=== PATIENT | female | born 2000 | race Caucasian/White ===

== ENCOUNTER 2023-10-20 10:56 | Outpatient (REF) | payer MEDICAID, SELFPAY ==
[2023-10-20 14:33] LABS: MANUAL DIFF FLAG NO
[2023-10-20 14:36] LABS: Basophils Percent Auto 0.5 % (0-2); Eosinophils Percent Auto 0.5 % (0-4); Hematocrit 38.6 % (37.0-47.0); Hemoglobin 12.1 g/dl (12.0-16.0); Imm Gran Abs Auto 0.03 X10*3/uL (0.00-0.03); Imm Gran Pct Auto 0.3 % (0.0-0.4); Lymphocytes Absolute Auto 2.2 X10*3/uL (1.2-4.9); Lymphocytes Percent Auto 25.6 % (20-40); Mean Corpuscular HGB Conc 31.3 g/dl (31.0-35.0); Mean Corpuscular Hemoglobin 28.2 pg (27.0-33.0); Mean Platelet Volume 9.7 fL (9.4-12.3); Monocytes Absolute Auto 0.5 X10*3/uL (0.1-1.2); Monocytes Percent Auto 6.3 % (2-11); Neutrophils Absolute Auto 5.8 x10*3/uL (2.0-8.3); Neutrophils Percent Auto 66.8 % (45-73); Platelet Count 330 X10*3/uL (160-400); Red Blood Count 4.29 X10*6/uL (4.20-5.50); Red Cell Distribution Width 14.4 % (11.0-16.0); White Blood Count 8.6 X10*3/uL (4.8-10.8)
[2023-10-20 14:47] LABS: Estimated Average Glucose 105 mg/dL; Hemoglobin A1c % 5.3 % (<6.0)
[2023-10-20 15:05] LABS: Alanine Aminotransferase 18 U/L (0-31); Albumin Level 4.2 g/dL (3.5-5.0); Alkaline Phosphatase 87 U/L (39-117); Anion Gap 9 (12-20); Aspartate Amino Transferase 18 U/L (5-31); Bilirubin Total 0.5 mg/dL (0.0-1.0); Blood Urea Nitrogen 8 mg/dL (9-16); Carbon Dioxide 29 mmol/L (22-29); Chloride 104 mmol/L (96-108); Cholesterol 156 mg/dL (<200); Estimated Glomerular Filt Rate > 60; Glucose Random 78 mg/dL (60-115); HDL Cholesterol 49 mg/dL (>40); LDL Cholesterol Calculated 91 mg/dL (<100); Potassium 4.1 mmol/L (3.3-5.1); Sodium 138 mmol/L (135-145); Total Protein 8.2 g/dL (6.5-8.0); Triglycerides 80 mg/dL (<150)
[2023-10-21 03:39] LABS: HIV AB/AG Nonreactive (Nonreactive); HIV Num 1 0.05 S/CO (0.00-0.99)
[2023-10-23 00:43] LABS: TS Negative Control Passed; TS Panel A 0; TS Panel B 0; TS Positive Control Passed; TSpotTB Negative (Negative)
[2023-10-23 12:48] LABS: HCV Log PCR <1.18 NOT DETECTED Log IU/mL (NOT DETECTED); HepC Viral Load <15 NOT DETECTED IU/mL (NOT DETECTED)
== END 2023-10-20 10:57 | disposition home or self-care (01) ==
LOC: HO.CHCLDS 10:56
PROVIDERS: Visit Provider Registered Nurse
DX: Z00.00 Encounter for general adult medical examination without abnormal findings (principal)
CPT/HCPCS: 36415; 80053; 80061; 83036; 84443; 85025; 86481; 86592; 87389; 87522

== ENCOUNTER 2024-11-21 13:09 | Outpatient (REF) | payer OTHER, SELFPAY ==
--- NOTE | ~2024-11-21 | XR_ITS ---
EXAMINATION: XR RIBS, LEFT CLINICAL INFORMATION: pain COMPARISON: May 05, 2016. TECHNIQUE: AP chest. Oblique views left hemithorax. FINDINGS: No consolidation pleural effusion or pneumothorax. Cardiomediastinal silhouette size is normal. No acute cortical disruption or irregularity in the ribs, left hemithorax. XR/XR ribs LT min 3V w CXR1V IMPRESSION: No acute airspace disease. No acute rib fracture, left hemithorax. Negative exam. Electronically signed by: Reinaldo Bahena MD 11/21/2024 01:42 PM EDT
--- OUTSIDE RECORDS SUMMARY | 2024-11-21 13:13 | XMS_ITS | Clinical Summary ---
Author Organization [facility] ity Address [address] [place] [address] Care Team Providers Care Chief Nurse Executive Name Role Phone Unavailable Primary Care Provider Unavailabl e Social History Tobacco Use Types Packs/Day Years Used Date Smoking Tobacco: Never Assessed Comments Unknown Sex and Gender Information Value Date Recorded Sex Assigned at Not on file Legal Sex Female 8:34 PM EST Gender Identity Not on file Sexual Orientation Not on file Plan of Treatment Health Maintenance Due Date Last Done Comments Gonorrhea/Chlamydia Screening 2001 HPV Vaccines (1 - 3-dose series) 2016 Meningococcal B Vaccine (1 o f 2 - Standard) 2017 DTaP,Tdap,and Td Vaccines (1 - Tdap) 2020 Hepatitis B Vaccines (1 of 3 - 19+ 3-dose series) 2020 Cervical Cancer Screening: P ap Smear 2022 COVID-19 Vaccine (1 - 2023-2 5 season) 2024 Influenza Vaccine (#1) 2025 HIB Vaccines Aged Out No longer eligi ble based on patient's age to complete this topic Hepatitis A Vaccines Aged Out No long er eligible based on patient's age to complete this topic IPV Vaccines Aged Out No longer eligi ble based on patient's age to complete this topic MMR Vaccines Aged Out No longer eligi ble based on patient's age to complete this topic Meningococcal ACWY Vaccine Aged Out N o longer eligible based on patient's age to complete this topic Pneumococcal Vaccine: Pediat rics (0 to 5 Years) and At-Risk Patients (6 to 49 Years) Aged Out No longer eligible b ased on patient's age to complete this topic RSV Immunization Patients Un dot 20 months Aged Out No longer eligible b ased on patient's age to complete this topic Varicella Vaccines Aged Out No longer eligible based on patient's age to complete this topic
--- OUTSIDE RECORDS SUMMARY | 2024-11-21 13:13 | XMS_ITS | Encounter Summary ---
Author Organization [employer] Address [address] [place] [address] Care Team Providers Care Layer Out Plate Glass Name Role Phone AndersonGenny pizarro LORA Primary Care Provider [phone] Encounter Details Date Type Department Care Team (Latest Contact Info) Description 11/20/2024 Travel Social History Tobacco Use Types Packs/Day Years Used Date Smoking Tobacco: Never Passive Smoke Exposure: Never Smokeless Tobacco: Never Alcohol Use Standard Drinks/Week Comments Never 0 (1 standard drink = 0.6 oz pur e alcohol) Depression Answer Date Recorded Patient Health Questionnaire-9 Score 15 10/20/2023 Patient Health Questionnaire-9 Score 15 10/20/2023 Last PHQ-9: Questionnaire Data Not on file 0 10/20/2023 Housing Stability Answer Date Recorded What is your housing situation today? I have ayad soares 10/20/[address] you li ve. Do you have problems with any of the following? None of the above 10/20/2023 Food Insecurity Answer Date Recorded Within the past 12 months, y ou worried that your food would run out before you got money to buy more: Never True 10/20/2023 Within the past 12 months,th e food you bought just didn't last and you didn't have enough money to get more: Never True 11/2023 Transportation Answer Date Recorded In the past 12 months, has l ack of transportation kept you from medical appts, meetings, work or from getting things needed for daily living? No 10/20/2023 Utilities Answer Date Recorded In the past 12 months, has t he electric, gas, oil or water company threatened to shut off services in your home? No 10/20/2023 Depression Answer Date Recorded Patient Health Questionnaire-2 Score 4 10/20/2023 Comments Unknown Sex and Gender Information Value Date Recorded Sex Assigned at Female 03/14/2022 10:22 AM EDT Legal Sex Female 10:22 AM EDT Gender Identity Female 03/14/2022 10:22 AM EDT Sexual Orientation Straight 03/14/2022 10 :22 AM EDT documented as of this encounter Plan of Treatment Upcoming Encounters Date Type Department Care Team (Late st Contact Info) Description 01/03/2025 9:30 AM EDT Office Visit [facility] [address] [place] [address] Genny Santiago FNP [address] [place] [address] documented as of this encounter Visit Diagnoses Not on filedocumented in this encounter Additional Health Concerns Assessment Noted Time PHQ-9 Depression Total Score: 15 024 9:46 AM EDT documented as of this encounter Care Teams Layer Out Plate Glass Relationship Specialty Start Date End Date Genny Santiago FNP [address] [place] [address] PCP - General Family Medicine 04/04/22 documented as of this encounter
== END 2024-11-21 13:10 | disposition home or self-care (01) ==
LOC: HO.HHCX 13:09
PROVIDERS: PCP Registered Nurse; Visit Provider Family Medicine
DX: R07.89 Other chest pain (principal)
CPT/HCPCS: 71101

== ENCOUNTER → 2024-11-21 13:18 | Outpatient (BNV) | payer OTHER, SELFPAY | PROVIDERS: PCP Registered Nurse; Visit Provider Radiology Diagnostic Radiology | DX: R07.89 Other chest pain (principal) | CPT/HCPCS: 71101 ==

== ENCOUNTER 2025-01-08 09:27 | Outpatient (REF) | payer OTHER, SELFPAY ==
--- OUTSIDE RECORDS SUMMARY | 2025-01-03 09:30 | XMS_ITS | Encounter Summary ---
Author Organization [email or web address] Address [address] [facility] 7 [place] [address] Care Team Providers Care Rice Cleaning Machine Tender Name Role Phone Genny Santiago Primary Care Provider [phone] Reason for Referral * Consultation (Routine) - Authorized Specialty Diagnoses / Procedures Referred By Greg rossi Referred To Contact Allergy Diagnoses Allergy, subsequent encounter Genny Santiago FNP [address] [place] [address] Phone: tel: fax: Elan Adams MD [address] [place] [address] [address] [place] [id number] Phone: tel: fax: Referral ID Status Reason Start Date Expiration Date Visits Requested Visits Authorized [id number] Authorized Specialty Services Required 01/05/2025 01/05/2026 1 1 * Consultation (Urgent) - Authorized Specialty Diagnoses / Procedures Referred By Greg rossi Referred To Contact Rheumatology Diagnoses Juvenile idiopathic arthritis (CMS/HCC) Genny Santiago FNP [address] [place] [address] Phone: tel: fax: [facility] Referral ID Status Reason Start Date Expiration Date Visits Requested Visits Authorized [id number] Authorized Specialty Services Required 01/05/2025 01/05/2026 1 1 Reason for Visit * Reason Comments Annual Exam Encounter Details Date Type Department Care Team (Late st Contact Info) Description 01/03/2025 9:30 AM EDT Office Visit [facility] [address] [place] [address] Genny Santiago FNP [address] [place] [address] Encounter for routine history and physical examination of adult (Primary Dx); Dietary counseling; Exercise counseling; Allergy, subsequent encounter; Routine health maintenance; Anxiety with depression; Juvenile idiopathic arthritis (CMS/HCC); Recurrent sinusitis; Mild acid reflux Social History Tobacco Use Types Packs/Day Years Used Date Smoking Tobacco: Never Passive Smoke Exposure: Never Smokeless Tobacco: Never Alcohol Use Standard Drinks/Week Comments Never 0 (1 standard drink = 0.6 oz pur e alcohol) Depression Answer Date Recorded Patient Health Questionnaire-9 Score 16 01/03/2025 Patient Health Questionnaire-9 Score 16 01/03/2025 Last PHQ-9: Questionnaire Data Not on file 0 01/03/2025 Housing Stability Answer Date Recorded What is your housing situation today? I have ayad soares 12/26/[address] you li ve. Do you have problems with any of the following? None of the above 12/26/2024 Food Insecurity Answer Date Recorded Within the past 12 months, y ou worried that your food would run out before you got money to buy more: Never True 12/26/2024 Within the past 12 months,th e food you bought just didn't last and you didn't have enough money to get more: Never True Transportation Answer Date Recorded In the past 12 months, has l ack of transportation kept you from medical appts, meetings, work or from getting things needed for daily living? No 12/26/2024 Utilities Answer Date Recorded In the past 12 months, has t he electric, gas, oil or water company threatened to shut off services in your home? No 12/26/2024 Depression Answer Date Recorded Patient Health Questionnaire-2 Score 4 01/03/2025 Internet Access Answer Date Recorded Internet Access Q1 Yes 12/26/2024 Internet Access Q2 Not on file 12/26/2024 Comments Unknown Sex and Gender Information Value Date Recorded Sex Assigned at Female 03/14/2022 10:22 AM EDT Legal Sex Female 10:22 AM EDT Gender Identity Female 03/14/2022 10:22 AM EDT Sexual Orientation Straight 03/14/2022 10 :22 AM EDT documented as of this encounter Last Filed Vital Signs Vital Sign Reading Time Taken Comments Blood Pressure 116/74 01/03/2025 9:47 AM EDT Pulse 80 01/03/2025 9:47 AM EDT Temperature 36.3 C (97.4 F) 01/03/2025 9:47 AM EDT Respiratory Rate 20 01/03/2025 9:47 AM EDT Oxygen Saturation 98% 01/03/2025 9:47 AM EDT Inhaled Oxygen Concentration - - Weight 103 kg (228 lb) 01/03/2025 9:47 AM EDT Height 163.2 cm (5' 4.25 ) 01/03/2025 9:47 AM ED T Body Mass Index 38.83 01/03/2025 9:47 AM EDT documented in this encounter Functional Status * Over the past 2 weeks, how often have you been bothered by any of the following problems? Question Answer Date of Assessment Author Patient Health Questionnaire -2 Score 4 01/03/2025 10:43 AM EDT Sa izabela De Paz [place] * Little interest or pleasure in doing things Answer Date of Assessment Author More than half the days 01/03/2025 10:43 AM EDT Roma De Paz MA * Feeling down, depressed, or hopeless Answer Date of Assessment Author More than half the days 01/03/2025 10:43 AM EDT Roma De aPz [place] * Trouble falling or staying asleep, or sleeping too much Answer Date of Assessment Author More than half the days 01/03/2025 10:43 AM EDT Roma De Paz [place] * Feeling tired or having little energy Answer Date of Assessment Author Nearly every day 01/03/2025 10:43 AM EDT Roma Donato [place] * Poor appetite or overeating Answer Date of Assessment Author More than half the days 01/03/2025 10:43 AM Roma Stewart [place] * Feeling bad about yourself - or that you are a failure or have let yourself or your family down Answer Date of Assessment Author More than half the days 01/03/2025 10:43 AM Roma Stewart [place] * Trouble concentrating on things, such as reading the newspaper or watching television Answer Date of Assessment Author Several days 01/03/2025 10:43 AM EDT Roma Rios [place] * Moving or speaking so slowly that other people could have noticed? Or the opposite - being so fidgety or restless that you have been moving around a lot more than usual. Answer Date of Assessment Author More than half the days 01/03/2025 10:43 AM Roma Stewart MA * Thoughts that you would be better off or hurting yourself in some way Answer Date of Assessment Author Not at all 01/03/2025 10:43 AM Roma Flores MA * Patient Health Questionnaire-9 Score Answer Date of Assessment Author 16 01/03/2025 10:43 AM Roma Flores MA * How difficult have these problems made it for you to do your work, take care of things at home, or get along with other people? Answer Date of Assessment Author Very difficult 01/03/2025 10:43 AM Roma Flores MA * Over the last 2 weeks, how often have you been bothered by any of the following problems? Question Answer Date of Assessment Author Feeling nervous, anxious, or on edge 2 01/03/2025 10:43 AM Sa izabela Stewart MA Not being able to stop or control worrying 2 01/03/2025 10:43 AM Sa izabela Stewart MA Worrying too much about different things 2 01/03/2025 10:43 AM Sa izabela Stewart MA Trouble relaxing 2 01/03/2025 10:43 AM Roma Stewart MA Being so restless that it is hard to sit still 1 01/03/2025 10:43 AM EDT Sa izabela De Paz MA Becoming easily annoyed or irritable 3 01/03/2025 10:43 AM EDT Sa izabela De Paz MA Feeling afraid as if somethi ng awful might happen 2 01/03/2025 10:43 AM EDT Sa izabela De Paz MA BREEZY-7 Total Score 14 01/03/2025 10:43 AM EDT Roma De Paz MA documented as of this encounter Patient Instructions * Patient Instructions* LORA Echevarria - 01/03/2025 9:30 AM EDT Please schedule an appointment for a pap smear Referrals to Rheumatology and Allergy will be sent documented in this encounter Progress Notes * LORA Echevarria - 01/03/2025 9:30 AM EDT Subjective: Mami Fortune is a 24 y.o. female who presents to the office with her mother for a physical exam. Interim history: Last PCP appt: 11/17/23 HPI: Juvenile idiopathic arthritis: Has been w/o Case Checker d/t insurance issues, leading to discontinuation of Humira over the past few months. Experiencing severe joint pain and mobility issues without Humira, affecting wrists, knees, ankles, hips, and finger joints. Difficulty with daily activities and work due to pain. Sinus congestion: Onset: > 2 weeks. Sinus congestion persists despite using Zyrtec and Benadryl.Stopped allergy shots due to insurance not covering them, leading to increased sinus issues. History of a sinus infection last year that required two rounds of antibiotics to resolve. Depression & Anxiety: Discontinued Prozac, currently taking Wellbutrin but experiencing increased anxiety, possibly due to stress from work, engagement, and family moving in. Anxiety had been better controlled when taking Prozac, in agreement to restart on low dose. Continues following with therapist. Acid reflux: Experiencing frequent acid reflux for a few weeks, not triggered by specific foods. Has been using TUMs OTC. In agreement to trial famotidine PRN. Problem List[1] Specialists: ENT - previously following for enlarged tonsils Route Driver - previously following and receiving allergy shots. In need of updated referral d/t new insurance. Rheum - following for hx of Juvenile idiopathic arthritis. In need of updated referral. Surgical History[2] Family History[3] Social History Social History Narrative Living situation: lives with family members Employment/Education: 8am-5pm at [employer], college graduate Substance use: denies use of alcohol, tobacco, opioids, or other substances Sexual activity: denies hx of sexual activity. Baseline STI screening 10/2023 neg Mental health: denies SI/HI/thoughts of self harm Menses: Menstrual cycles occur approx every 21 days. (+) intermittent dysmenorrhea. Allergies[4] Review of Systems Constitutional: Negative for chills, fatigue and fever. HENT: Positive for congestion, sinus pressure and sinus pain. Negative for sore throat. Eyes: Negative for visual disturbance. Respiratory: Negative for cough, shortness of breath and wheezing. Cardiovascular: Negative for chest pain and palpitations. Gastrointestinal: Negative for constipation, diarrhea, nausea and vomiting. Musculoskeletal: Positive for arthralgias. Skin: Negative for rash. Psychiatric/Behavioral: Positive for dysphoric mood. Negative for suicidal ideas. The patient is nervous/anxious. Visit Vitals BP 116/74 (BP Location: Left arm, Patient Position: Sitting, BP Cuff Size: Adult) Pulse 80 Temp 97.4 ??F (36.3 ??C) (Oral) Resp 20 Ht 5' 4.25 (1.632 m) Wt 228 lb (103 kg) SpO2 98% BMI 38.83 kg/m?? Smoking Status Never BSA 2.16 m?? Physical Exam Vitals reviewed. Constitutional: Appearance: Normal appearance. HENT: Head: Normocephalic and atraumatic. Right Ear: Tympanic membrane, ear canal and external ear normal. Left Ear: Tympanic membrane, ear canal and external ear normal. Nose: Congestion present. Right Turbinates: Enlarged. Left Turbinates: Enlarged. Right Sinus: Maxillary sinus tenderness and frontal sinus tenderness present. Left Sinus: Maxillary sinus tenderness and frontal sinus tenderness present. Mouth/Throat: Mouth: Mucous membranes are moist. Pharynx: No oropharyngeal exudate or posterior oropharyngeal erythema. Eyes: General: Right eye: No discharge. Left eye: No discharge. Extraocular Movements: Extraocular movements intact. Pupils: Pupils are equal, round, and reactive to light. Cardiovascular: Rate and Rhythm: Normal rate and regular rhythm. Heart sounds: Normal heart sounds. Pulmonary: Effort: Pulmonary effort is normal. Breath sounds: Normal breath sounds. Abdominal: General: There is no distension. Palpations: Abdomen is soft. Musculoskeletal: General: Normal range of motion. Cervical back: Normal range of motion. No tenderness. Skin: General: Skin is warm. Neurological: Mental Status: She is alert and oriented to person, place, and time. Psychiatric: Mood and Affect: Mood normal. Behavior: Behavior normal. Problem List Items Addressed This Visit Allergies and Adverse Reactions Allergies Current Assessment & Plan -Allergy testing through ENT and reports tested positive to the following allergens: Grass, trees, cat and dog dander, cockroaches, dust, mold -Referred to gaming cage worker in August 2022 for testing of food allergies, reports initial consult scheduled for Feb 2023 -Epi pen PRN -Referred to re-establish with allergies: 01/05/25 Relevant Orders Referral to Allergy Gastrointestinal and Abdominal Mild acid reflux Current Assessment & Plan - Increased frequency of acid reflux symptoms. - Start famotidine up to twice daily before meals. Avoid dietary triggers. Follow-up in 2-3 months to assess response. Relevant Medications famotidine (Pepcid) 20 MG tablet Health Encounters Routine health maintenance Overview Last PE: 01/03/25 Dental: referral to [facility] dental 06/19/23 Pap: due for annual pap while taking Humira. Current Assessment & Plan Encouraged to schedule pap. Routine lab work ordered. Mental Health Anxiety with depression Current Assessment & Plan - Anxiety has increased, likely exacerbated by environmental stressors. Depression managed with Wellbutrin, but anxiety persists. No current fluoxetine use. - Restart fluoxetine at 10 mg daily. Continue Wellbutrin. Continue therapy. Advised to hold ashwagandha due to potential interaction with fluoxetine. -BH: OP therapy: [facility] ([facility]) Therapist: Harman Relevant Medications FLUoxetine (PROzac) 10 MG capsule Multi-system (Lupus, Sarcoid...) Juvenile idiopathic arthritis (CMS/HCC) Current Assessment & Plan - Juvenile arthritis symptoms have worsened due to discontinuation of Humira. No current wood setter. - Placed urgent referral to rheumatology for evaluation and management. Will check tuberculosis with blood work prior to restarting Humira. Relevant Orders Referral to Rheumatology Other Visit Diagnoses Encounter for routine history and physical examination of adult - Primary -Cardiopulmonary exam WNL -Encouraged healthy lifestyle habits including routine physical exercise and diet rich in fruits and vegetables Relevant Medications Multiple Vitamins-Minerals (WOMENS MULTI GUMMIES PO) Other Relevant Orders T-SPOT??.TB Comprehensive Metabolic Panel TSH W/Reflex to FT4 Lipid Panel, Standard Hemoglobin A1c Vitamin D, 25-Hydroxy, Total, Immunoassay Dietary counseling Exercise counseling Recurrent sinusitis - Chronic sinus congestion with recurrent sinusitis, currently with increased congestion and sinus tenderness. Previous sinus infections required two rounds of antibiotics, with better response to levofloxacin. - Prescribed levofloxacin once daily for 7 days[address] Placed referral to allergy for evaluation and possible resumption of allergy injections. Will confirm Flonase prescription. Relevant Medications levoFLOXacin (Levaquin) 500 MG tablet Follow up: 2-3 months for pap, acid reflux, and mental health. Sooner as needed. Current Medications[5] Immunization History Administered Date(s) Administered DTaP 2001, 01/11/2002, 06/24/2002, 12/06/2004, 09/19/2007 HPV 9-Valent 02/09/2015, 06/18/2015 HPV, Quadrivalent 03/14/2013 Hep A, ped/adol, 2 dose 02/09/2015, 08/13/2015 Hep B, Adolescent or Pediatric 2001, 2001, 01/11/2002 Hib (HbOC) 2001, 01/11/2002, 08/23/2002 IPV 2001, 2001, 01/11/2002, 05/27/2005 Influenza injectable quadrivalent IIV4 with preservative 02/09/2015, 02/08/2018 Influenza injectable quadrivalent preservative free 06/02/2020, 03/09/2021, 01/27/2022, 02/03/2023 Influenza, live, intranasal 01/23/2012, 03/14/2013 MMR 06/24/2002, 05/27/2005 Meningococcal B, Recombinant 09/21/2017, 10/23/2018 Meningococcal MCV4O 10/23/2018 Meningococcal MCV4P ACYW-135 03/14/2013, 12/31/2019 Pfizer Covid-19 Vaccine 12+ 02/08/2018, 06/26/2020, 07/17/2020, 06/04/2021, 10/20/2023, 03/05/2024 Pfizer Covid-19 Vaccine 12+ Bivalent 09/06/2022 Pneumococcal Conjugate PCV 7 2001, 2001, 06/24/2002 Tdap 03/14/2013, 07/10/2016, 10/23/2018 Varicella 06/24/2002, 10/18/2006, 06/24/2012 [1] Patient Active Problem List Diagnosis Juvenile idiopathic arthritis (CMS/HCC) Anxiety with depression Routine health maintenance Allergies Mild acid reflux [2] Past Surgical History: Procedure Laterality Date DENTAL SURGERY [3] Family History Problem Relation Name Age of Onset Depression Mother Rosi Asthma Father Frederic Heart disease Father Frederic Hypertension Father Frederic Mental illness Father Frederic Heart attack Father Frederic Osteoarthritis Father Frederic Osteoporosis Father Frederic Asthma Sister Rosie Depression Sister Rosie Learning disabilities Sister Sussarwat Intellectual Disability Sister Sussarwat Asthma Mother's Sister Magdalenoi Diabetes Father's Sister Tracy Arthritis Maternal Grandmother Judy Diabetes Maternal Grandmother Judy Asthma Maternal Grandfather Quan Lung cancer Maternal Grandfather Quan Arthritis Paternal Grandmother Rhona Asthma Paternal Grandmother Rhona Skin cancer Paternal Grandmother Rhona [4] Allergies Allergen Reactions Cat Dander Dog Dander [Dog Epithelium] Dust Mite Extract Molds & Smuts Hives [5] Current Outpatient Medications Medication Sig Dispense Refill Multiple Vitamins-Minerals (WOMENS MULTI GUMMIES PO) Take 1 tablet by mouth Once per day. buPROPion XL (Wellbutrin XL) 300 MG 24 hr tablet TAKE 1 TABLET BY MOUTH EVERY MORNING. DO NOT CRUSH, CHEW OR SPLIT. 90 tablet 0 Cetirizine HCl 10 MG capsule one pill daily EPINEPHrine (Epipen) 0.3 MG/0.3ML injection syringe USE DIRECTED FOR ANAPHYLAXIS AND CALL 911 famotidine (Pepcid) 20 MG tablet Take 1 tablet (20 mg) by mouth before breakfast and before eveningmeal. 60 tablet 1 FLUoxetine (PROzac) 10 MG capsule Take 1 capsule (10 mg) by mouth Once per day. 90 capsule 1 fluticasone (Flonase) 50 MCG/ACT nasal spray Administer 1-2 sprays into each nostril Once per day. Shake gently. Before first use, prime pump. After use, clean tip and replace cap. Treatment for sinusitis for 14 days no need refills 16 g 0 Humira Pen 40 MG/0.4ML Pen-injector Kit pen-injector levoFLOXacin (Levaquin) 500 MG tablet Take 1 tablet (500 mg) by mouth Once per day for 7 days. 7 tablet 0 meloxicam (Mobic) 15 MG tablet TAKE 1 TABLET BY MOUTH EVERY DAY WITH FOOD NEEDED FOR PAIN No current facility-administered medications for this visit. documented in this encounter Miscellaneous Notes * Assessment & Plan Note - LORA Echevarria - 01/05/2025 2:22 PM EDTAssociated Problem(s): Routine health maintenance Encouraged to schedule pap. Routine lab work ordered. * Assessment & Plan Note - LORA Echevarria - 01/05/2025 2:21 PM EDTAssociated Problem(s): Mild acid reflux - Increased frequency of acid reflux symptoms. - Start famotidine up to twice daily before meals. Avoid dietary triggers. Follow-up in 2-3 months to assess response. * Assessment & Plan Note - LORA Echevarria - 01/03/2025 9:49 AM EDTAssociated Problem(s): Juvenile idiopathic arthritis (CMS/HCC) - Juvenile arthritis symptoms have worsened due to discontinuation of Humira. No current wood setter. - Placed urgent referral to rheumatology for evaluation and management. Will check tuberculosis with blood work prior to restarting Humira. * Assessment & Plan Note - LORA Echevarria - 01/03/2025 9:49 AM EDTAssociated Problem(s): Anxiety with depression - Anxiety has increased, likely exacerbated by environmental stressors. Depression managed with Wellbutrin, but anxiety persists. No current fluoxetine use. - Restart fluoxetine at 10 mg daily. Continue Wellbutrin. Continue therapy. Advised to hold emelydha due to potential interaction with fluoxetine. -BH: [facility] Therapist: Harman * Assessment & Plan Note - LORA Echevarria - 01/03/2025 9:49 AM EDT Associated Problem(s): Allergies -Allergy testing through ENT and reports tested positive to the following allergens: Grass, trees, cat and dog dander, cockroaches, dust, mold -Referred to gaming cage worker in August 2022 for testing of food allergies, reports initial consult scheduled for Feb 2023 -Epi pen PRN -Referred to re-establish with allergies: 01/05/25 documented in this encounter Plan of Treatment Upcoming Encounters Date Type Department Care Team (Late st Contact Info) Description 04/04/2025 8:30 AM EST Procedure Visit [facility] [address] [place] [address] Genny Santiago FNP [address] [place] [address] Scheduled Orders Name Type Priority Associated Diagnoses Orde r Schedule T-SPOT .TB Lab Routine Encounter for routine history and physical examination of adult Expected: 01/03/2025 (Approximate), Expires: 01/03/2026 Comprehensive Metabolic Panel Lab Routine Encounter for routine history and physical examination of adult Expected: 01/03/2025 (Approximate), Expires: 01/03/2026 TSH W/Reflex to FT4 Lab Routine Encounter for routine history and physical examination of adult Expected: 01/03/2025 (Approximate), Expires: 01/03/2026 Lipid Panel, Standard Lab Routine Encounter for routine history and physical examination of adult Expected: 01/03/2025 (Approximate), Expires: 01/03/2026 Hemoglobin A1c Lab Routine Encounter for routine history and physical examination of adult Expected: 01/03/2025 (Approximate), Expires: 01/03/2026 Vitamin D, 25-Hydroxy, Total, Immunoassay Lab Routine Encounter for routine history and physical examination of adult Expected: 01/03/2025 (Approximate), Expires: 01/03/2026 Scheduled Referrals Name Type Priority Associated Diagnoses Order Schedule Referral to Rheumatology Outpatient Referral Urgent Juvenile idiopathic arthritis (CMS/HCC) Expected: 01/05/2025 (Approximate), Expires: 01/05/2026 Referral to Allergy Outpatient Referral Routine Allergy, subsequent encounter Expected: 01/05/2025 (Approximate), Expires: 01/05/2026 documented as of this encounter Visit Diagnoses Diagnosis Encounter for routine history and physical examination of adult- Primary Dietary counseling Dietary surveillance and counseling Exercise counseling Allergy, subsequent encounter Routine health maintenance Unspecified examination Anxiety with depression Juvenile idiopathic arthritis (CMS/HCC) Other specified inflammatory polyarthropathies Recurrent sinusitis Unspecified sinusitis (chronic) Mild acid reflux documented in this encounter Additional Health Concerns Assessment Noted Time PHQ-9 Depression Total Score: 16 025 10:43 AM EDT documented as of this encounter Care Teams Rice Cleaning Machine Tender Relationship Specialty Start Date End Date Genny Santiago FNP [address] [place] [address] PCP - General Family Medicine 04/04/22 documented as of this encounter
--- OUTSIDE RECORDS SUMMARY | 2025-01-08 10:00 | XMS_ITS | Clinical Summary ---
Author Organization [facility] Address [address] [place] [address] Care Team Providers Care Fisheries Management Biologist Name Role Phone Unavailable Primary Care Provider [...] Vaccine (1 - 2023-2 5 season) 2024 Depression Screening 05/15/2024 Influenza Vaccine (#1) 2025 HIB Vaccines Aged [...]
--- OUTSIDE RECORDS SUMMARY | 2025-01-08 10:01 | XMS_ITS | Encounter Summary ---
Author Organization [employer] Address [address] [facility] [address] [place] [address] Care Team Providers Care Ladies' Hat Trimmer Name Role Phone AndersonGenny pizarro LORA Primary Care Provider [phone] Encounter Details Date Type Department Care Team (Latest Contact Info) Description 01/03/2025 Travel Social History Tobacco Use Types Packs/Day [...] AM EDT documented as of this encounter Functional Status * Over the [...] AM EDT Roma De Paz [place] * Trouble falling or staying asleep, [...] than half the days 01/03/2025 10:43 AM GUANACOT Roma De Paz [place] * Feeling bad about yourself - or that you are a failure or have let yourself or your family down Answer Date of Assessment Author More than half the days 01/03/2025 10:43 AM GUANACOT Roma De Paz [place] * Trouble concentrating on things, such as reading the newspaper or watching television Answer Date of Assessment Author Several days 01/03/2025 10:43 AM Roma Flores [place] * Moving or speaking so slowly [...] to sit still 1 01/03/2025 10:43 AM Sa izabela Stewart [place] Becoming easily annoyed or irritable 3 01/03/2025 10:43 AM Sa izabela Stewart [place] Feeling afraid as if somethi ng awful might happen 2 01/03/2025 10:43 AM Sa izabela Stewart [place] BREEZY-7 Total Score 14 01/03/2025 10:43 AM EDT Roma De Paz [place] documented as of this encounter Plan of Treatment Upcoming Encounters Date Type Department Care Team (Late st Contact Info) Description 04/04/2025 8:30 AM EST Procedure Visit [facility] [address] [place] [address] Genny Santiago FNP [address] [place] [address] documented as of this encounter Visit Diagnoses Not on filedocumented in this encounter Additional Health Concerns Assessment Noted Time PHQ-9 Depression Total Score: 16 025 10:43 AM EDT documented as of this encounter Care Teams Ladies' Hat Trimmer Relationship Specialty Start Date End Date Genny Santiago FNP [address] [place] [address] PCP - General Family Medicine 04/04/22 documented as of this encounter
--- OUTSIDE RECORDS SUMMARY | 2025-01-08 10:01 | XMS_ITS | Clinical Summary ---
Author Organization [employer] Address [address] [facility] [address] [place] [address] Care Team Providers Care Shirrer Name Role Phone Genny Santiago LORA Primary Care Provider [phone] Allergies Active Allergy Reactions Criticality Noted Date Comments Cat Dander 09/06/2022 Dog Epithelium 09/06/2022 Dust Mite Extract 09/06/2022 Molds & Smuts Hives 06/19/2023 Medications * This document contains information received from the source organization and may not represent a complete record from that organization. Humira Pen 40 MG/0.4ML Pen-injector Kit pen-injector 3 Active EPINEPHrine (Epipen) 0.3 MG/0.3ML injection syringe USE DIRECTED FOR ANAPHYLAXIS AND CALL 911 3 Active meloxicam (Mobic) 15 MG tablet TAKE 1 TABLET BY MOUTH EVERY DAY WITH FOOD NEEDED FOR PAIN 2 Active Cetirizine HCl 10 MG capsule one pill daily 0 Active fluticasone (Flonase) 50 MCG/ACT nasal spray Administer 1-2 sprays into each nostril Once per day. Shake gently. Before first use, prime pump. After use, clean tip and replace cap. Treatment for sinusitis for 14 days no need refills 16 g 5 026 Active buPROPion XL (Wellbutrin XL) 300 MG 24 hr tablet TAKE 1 TABLET BY MOUTH EVERY MORNING. DO NOT CRUSH, CHEW OR SPLIT. 90 tablet 5 Active Multiple Vitamins-Minera ls (WOMENS MULTI GUMMIES PO)Indications: Encounter for routine history and physical examination of adult Take 1 tablet by mouth Once per day. Active FLUoxetine (PROzac) 10 MG capsuleIndicati ons:Anxiety with depression Take 1 capsule (10 mg) by mouth Once per day. 90 capsule 1 5 026 Active levoFLOXacin (Levaquin) 500 MG tabletIndicatio ns:Recurrent sinusitis Take 1 tablet (500 mg) by mouth Once per day for 7 days. 7 tablet 5 025 Active famotidine (Pepcid) 20 MG tabletIndicatio ns:Mild acid reflux Take 1 tablet (20 mg) by mouth before breakfast and before evening meal. 60 tablet 1 5 026 Active FLUoxetine (PROzac) 10 MG tabletIndicatio ns:Anxiety with depression Take 1 tablet (10 mg) by mouth Once per day. 30 tablet 1 4 025 Discontin ued(Thera py completed ) Active Problems Problem Noted Date Diagnosed Date Mild acid reflux 01/05/2025 Assessment & Plan (01/05/2025 2:21 PM EDT): - Increased frequency of acid reflux symptoms. - Start famotidine up to twice daily before meals. Avoid dietary triggers. Follow-up in 2-3 months to assess response. Juvenile idiopathic arthritis 09/06/2022 Assessment & Plan (01/05/2025 2:14 PM EDT): - Juvenile arthritis symptoms have worsened due to discontinuation of Humira. 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 - Placed urgent referral to rheumatology for evaluation and management. Will check tuberculosis with blood work prior to restarting Humira. Assessment & Plan (10/22/2023 3:30 PM EDT): -Followed [facility] (previously Dr. Perdue) -Continues on Humira Q2 weeks -Yearly tuberculosis screening: ordered 10/20/23 through PCP Assessment & Plan (11/05/2022 8:20 PM EDT): -Followed by [facility] -Continues on Humira Q2 weeks -Reports symptoms well controlled on current regimen -Yearly tuberculosis screening through Rheum Assessment & Plan (10/07/2022 10:14 AM EDT): -Followed by [facility] -Continues on Humira Q2 weeks -Reports symptoms well controlled on current regimen -Yearly tuberculosis screening through Rheum Assessment & Plan (09/06/2022 1:44 PM EDT): -Followed by [facility] Dr. Perdue -Continues on Humira Q2 weeks -Reports symptoms well controlled on current regimen Anxiety with depression 09/06/2022 Assessment & Plan (01/05/2025 2:20 PM EDT): - Anxiety has increased, likely exacerbated by environmental stressors. Depression managed with Wellbutrin, but anxiety persists. No current fluoxetine use. - Restart fluoxetine at 10 mg daily. Continue Wellbutrin. Continue therapy. Advised to hold ashwagandha due to potential interaction with fluoxetine. -BH: OP therapy: [facility] ([facility]) Therapist: Harman Assessment & Plan (11/17/2023 9:52 AM EDT): -Continue fluoxetine 10mg daily -Start bupropion 150mg daily x 1 week. May increase to 300mg if tolerating well w/o SE -BH: OP therapy: [facility] ([facility]) Therapist: Harman Assessment & Plan (10/22/2023 4:33 PM EDT): -Feeling more stable overall, interested in decrease of fluoxetine -Plan: decrease fluoxetine to 10mg daily -BH: OP therapy Assessment & Plan (06/19/2023 12:31 PM EST): October 2022: -PHQ9: 19; denies SI/HI/thoughts of self harm -GAD7: 04 Jun 2023: -PHQ9: 9, denies SI/HI/thoughts of self harm -GAD7: 7 -Noted improvement in mental health with more manageable school schedule -Continue fluoxetine 20mg daily -BH: OP therapy Assessment & Plan (02/23/2023 5:13 PM EDT): October 2022: -PHQ9: 19; denies SI/HI/thoughts of self harm -GAD7: 21 Today: -Noting improvement in mental health with integrated approach to care and increased dose of fluoxetine -Continue fluoxetine 20mg daily, reviewed med safety, and SE -Continue following with OP therapy - weekly sessions Assessment & Plan (11/05/2022 8:21 PM EDT): -PHQ9: 19; denies SI/HI/thoughts of self harm -GAD7: 21 -Increase to fluoxetine 20mg daily, reviewed med safety, SE, and expected timeline to reach therapeutic effect -Integrated behavioral health eval completed 10/06/22. Please see their note for further details. Referred for OP therapy. Assessment & Plan (10/17/2022 8:38 AM EDT): Assessment: Patient with depressed mood, lack of energy (finding it hard to complete tasks), fluctuating appetite, no motivation, sleep disturbance (waking up throughout the night), no interest/pleasure in doing things, and feeling bad about herself. She denies SI/HI. Presentation in the context of multiple stress factors including academic, household, relationships, and trauma history. Patient will benefit from a referral to OP therapy service. Patient will begin medication thru her PCP. At this time Mami Fortune meets criteria for Visit Diagnoses: Problem List Items Addressed This Visit Other Anxiety with depression Patient ready to address current needs Yes Strengths include resilience. PLAN: 1. Follow up with [facility]: Not recommended for follow-up 2. Patient goal is to reengage in OP therapy. 3. Behavioral Recommendations a. Engage in OP therapy, once established b. Patient will comply with prescribed medication c. Patient will utilize grounding , mindfulness, and behavioral activation techniques Assessment & Plan (10/07/2022 10:10 AM EDT): -Discontinue Zoloft -Start fluoxetine 10mg daily, reviewed med safety, SE, and expected timeline to reach therapeutic effect -PHQ9 score 14, denies SI/HI/thoughts of self harm -Integrated behavioral health eval completed following visit today Assessment & Plan (09/06/2022 1:45 PM EDT): -Re-start Zoloft 50mg daily, may titrate upwards as needed to reach therapeutic effect (previous on 100mg dose). Reviewed med safety and SE -Time did not permit for BE today, consider at follow up as she does not currently have therapist but expresses interest in establishing Routine health maintenance 09/06/2022 Overview (01/05/2025): Last PE: 01/03/25 Dental: referral to [facility] dental 06/19/23 Pap: due for annual pap while taking Humira. Assessment & Plan (01/05/2025 2:22 PM EDT): Encouraged to schedule pap. Routine lab work ordered. Allergies 09/06/2022 Assessment & Plan (01/05/2025 2:19 PM EDT): -Allergy testing through ENT and reports tested positive to the following allergens: Grass, trees, cat and dog dander, cockroaches, dust, mold -Referred to demolition engineer in August 2022 for testing of food allergies, reports initial consult scheduled for Feb 2023 -Epi pen PRN -Referred to re-establish with allergies: 01/05/25 Assessment & Plan (10/22/2023 4:33 PM EDT): -Allergy testing through ENT and reports tested positive to the following allergens: Grass, trees, cat and dog dander, cockroaches, dust, mold -Referred to demolition engineer in August 2022 for testing of food allergies, reports initial consult scheduled for Feb 2023 -Epi pen PRN -Continues with allergy shots Assessment & Plan (06/19/2023 12:29 PM EST): -Allergy testing through ENT and reports tested positive to the following allergens: Grass, trees, cat and dog dander, cockroaches, dust, mold -Referred to demolition engineer in August 2022 for testing of food allergies, reports initial consult scheduled for Feb 2023 -Epi pen PRN -Plan to restart allergy shots (was informed duration would be weekly injections x 3-5 years) Assessment & Plan (11/05/2022 8:19 PM EDT): -Allergy testing through ENT and reports tested positive to the following allergens: Grass, trees, cat and dog dander, cockroaches, dust, mold -Referred to demolition engineer in August 2022 for testing of foot allergies, reports initial consult scheduled for Feb 2023 -Epi pen PRN Assessment & Plan (09/06/2022 1:47 PM EDT): -Allergy testing through ENT and reports tested positive to the following allergens: Grass, trees, cat and dog dander, cockroaches, dust, mold -Referral to demolition engineer on 09/06/22 for further eval of food allergies -Epi pen PRN Resolved Problems Problem Noted Date Diagnosed Date Resolved Date Sinusitis 10/04/2024 01/03/2025 Assessment & Plan (10/05/2024 2:53 PM EDT): Pt clinically w uncomplicated sinusitis -pxed flonase to use at each nase HS for 2 to 3 weeks -continue ocean nasal spray PRN -no need for ATB at this time -alarm signs and symptoms discussed Folliculitis 10/04/2024 01/03/2025 Assessment & Plan (10/05/2024 2:53 PM EDT): Pt with likely folliculitis -advised to avoid touching area and to not shave -prescribed Doxycycline BID x 5 days -alarm signs and symptoms discussed Mild intermittent asthma 09/06/2022 Assessment & Plan (09/06/2022 10:00 AM EDT): -Resolved Rheumatism 01/07/2015 09/06/2022 Muscle pain 05/01/2014 09/06/2022 Myositis 05/01/2014 09/06/2022 Encounters Date Type Department Care Team Description 01/03/2025 9:30 AM EDT Office Visit [facility] [address] [place] [address] Genny Santiaog FNP Encounter for routine history and physical examination of adult (Primary Dx); Dietary counseling; Exercise counseling; Allergy, subsequent encounter; Routine health maintenance; Anxiety with depression; Juvenile idiopathic arthritis (CMS/HCC); Recurrent sinusitis; Mild acid reflux 01/03/2025 Travel 01/02/2025 Telephone [facility] [address] [place] [address] Genny Santiago FNP Chart Prep 12/26/2024 Patient Outreach [facility] [address] [place] [phone] Genny Santiago FNP Pre-visit Planning (SDOH screening negative and Tobacco screening negative) 11/20/2024 6:40 PM EDT Office Visit [facility] [address] [place] [phone] Erik Avendano MD Anterior chest wall pain (Primary Dx) 11/20/2024 Travel 11/01/2024 Refill [facility] [address] [place] [address] Genny Santiago FNP from Last 3 Months Immunizations Immunization Administration Dates Next Due DTaP 09/19/2007, 5,06/24/2002,01/11,2001 HPV 9-Valent 06/18/2015,02/09/2015 HPV, Quadrivalent 03/14/2013 Hep A, ped/adol, 2 dose 08/13/2015,02/09/2015 Hep B, Adolescent or Pediatric 01/11/2002,2001,2001 Hib (HbOC) 08/23/2002,01/11/2002,2001 IPV 05/27/2005, 2,2001,07/11 Influenza injectable quadriv alent IIV4 with preservative 02/08/2018,02/09/2015 Influenza injectable quadriv alent preservative free 02/03/2023,01/27/2022,03/09/2021,06/02 Influenza, live, intranasal 03/14/2013, 2 MMR 05/27/2005,06/24/2002 Meningococcal B, Recombinant 10/23/2018,09/22/19 18 Meningococcal MCV4O 10/23/2018 Meningococcal MCV4P ACYW-135 12/31/2019,03/14/20 13 Pfizer Covid-19 Vaccine 12+ 10/20/2023, 8 Pfizer Covid-19 Vaccine 12+ Bivalent 09/06/2022 Pneumococcal Conjugate PCV 7 06/24/2002,11/30/19 02,2001 Tdap 10/23/2018,07/10/2016,03/14/2013 Varicella 06/24/2012,10/18/2006,06/24/2002 Family History Medical History Relation Name Comments Asthma Father Frederic Heart attack Father Frederic Heart disease Father Frederic Hypertension Father Frederic Mental illness Father Frederic Osteoarthritis Father Frederic Osteoporosis Father Frederic Diabetes Father's Sister Tracy Asthma Maternal Grandfather Quan Lung cancer Maternal Grandfather Quan Arthritis Maternal Grandmother Judy Diabetes Maternal Grandmother Judy Depression Mother Nixzaliz Asthma Mother's Sister Lizmari Arthritis Paternal Grandmother Rhona Asthma Paternal Grandmother Rhona Skin cancer Paternal Grandmother Rhona Asthma Sister 1 Suleymarie Depression Sister 1 Suleymarie Intellectual Disability Sister 2 Suseth Learning disabilities Sister 2 Suseth Relation Name Status Comments Father Frederic Alive Father's Sister Tracy Alive Maternal Grandfather Quan Alive Maternal Grandmother Judy Alive Mother Nixzaliz Alive Mother's Sister Lizmari Alive Paternal Grandmother Rhona Alive Sister 1 Suleymarie Alive Sister 2 Suseth Alive Social History Tobacco Use Types Packs/Day Years Used Date Smoking Tobacco: Never Passive Smoke Exposure: Never Smokeless Tobacco: Never Tobacco Cessation:Counseling Given: Not Answered Alcohol Use Standard Drinks/Week Comments Never 0 [...] Orientation Straight 03/14/2022 10 :22 AM EDT Last Filed Vital Signs Vital Sign Reading [...] Mass Index 38.83 01/03/2025 9:47 AM EDT Plan of Treatment Upcoming Encounters Date Type Department Care Team (Late st Contact Info) Description 04/04/2025 8:30 AM EST Procedure Visit [facility] [address] [place] [address] Genny Santiago, WOOL BUYER [address] [place] [address] Health Maintenance Due Date Last Done Comments Chlamydia and Gonorrhea Screening 2001 Family Planning (PISQ) 2016 Pap Smear 2022 Influenza Vaccine (#1) 2025 , 02/03/2023, 01/27/2022, Additional history exists Depression Monitoring 07/06/2025 01/03/2025, 025 Tobacco Screening 11/20/2025 11/20/2024 SDOH Screening 12/26/2025 12/26/2024 Alcohol/Substance Use Screening 01/03/2026 01/03/2025 Disability Screening 01/03/2026 01/03/2025 DTaP/Tdap/Td Vaccines (9 - Td or Tdap) 10/23/2028 10/23/2018, 07/10/2016, 03/14/2013, Additional history exists Zoster Vaccines (1 of 2) 2051 RSV Patients and Patients Aged 60 years or older (1 - 1-dose 75+ series) 2076 Hepatitis B Vaccines Completed 01/11/2002, 2001, 2001 Pneumococcal Vaccine: Pediatrics (0 to 5 Years) and At-Risk Patients (6 to 49) Years Aged Out 06/24/2002, 2001, 2001 No longer eligible based on patient's age to complete this topic HIB Vaccines Completed 08/23/2002, 12/15, 2001 IPV Vaccines Completed 05/27/2005, 12/15, 2001, Additional history exists HPV Vaccines Completed 06/18/2015, 01/14, 03/14/2013 Hepatitis A Vaccines Completed 08/13/2015, 02/10/20 15 Meningococcal B Vaccine Completed 10/23/2018, 09/21 Meningococcal Vaccine Completed 12/31/2019 , 10/23/2018, 03/14/2013 HIV Screening Completed 10/20/2023 Hepatitis C Screening Completed 10/20/2023, 020 COVID-19 Vaccine Completed 03/05/2024, 11/2023, 09/06/2022, Additional history exists RSV under 20 months Aged Out No longe r eligible based on patient's age to complete this topic Rotavirus Vaccines Aged Out No longer eligible based on patient's age to complete this topic Procedures Procedure Name Priority Date/Time Associated Diagnosis Comments XR RIBS 3 VIEWS LEFT W CHEST Routine 11/21/2024 12:41 PM EDT HEPATITIS C VIRAL RNA, QUANTITATIVE, REAL-TIME PCR Routine 10/20/2023 11:02 AM EDT Encounter for routine history and physical examination of adult HIV 1/2 ANTIGEN/ANTIBODY, FOURTH GENERATION W/RFL Routine 10/20/2023 11:02 AM EDT Encounter for routine history and physical examination of adult from Last 3 Months or Most Recently Relevant to Health Maintenance Results * XR Ribs 3 Views Left w/ Chest (11/21/2024 12:41 PM EDT) Anatomical Region Laterality Modality Radiographic Josi ging 11/21/2024 12:4 1 PM EDT Narrative 11/21/2024 1:45 [place] [address] XRay Report Signed Patient: Mami Philip MR# : [id number] : 2000 Acct:[id number] Age/Sex: 24 / F ADM Date: 11/21/24 Loc: HO.HHCX Attending Dr: Erik Avendano MD Ordering Physician: Erik Avendano MD Date of Service: 11/21/24 Procedure(s): XR ribs LT min 3V w CXR1V Accession Number(s): [id number] cc: Erik Avendano MD; Genny Santiago WOOL BUYER EXAMINATION: XR RIBS, LEFT CLINICAL INFORMATION: pain COMPARISON: May 05, 2016. TECHNIQUE: AP chest. Oblique views left hemithorax. FINDINGS: No consolidation pleural effusion or pneumothorax. Cardiomediastinal silhouette size is normal. No acute cortical disruption or irregularity in the ribs, left hemithorax. XR/XR ribs LT min 3V w CXR1V IMPRESSION: No acute airspace disease. No acute rib fracture, left hemithorax. Negative exam. Electronically signed by: Reinaldo Bahena MD 11/21/2024 01:42 PM EDT RP Dictated By: Reinaldo Johnson MD Signed By: <Electronically signed by Reinaldo Gee MD in OV> 11/21/24 1342 DD/ 1241 TD/TT: 11/21/24 1300 Monitoring Engineer: Procedure Note Donotuseinterpreter, Image - 11/21/[address] [address] XRay Report Signed Patient: Grace Philip# : [id number] : 2000Acct:[id number] Age/Sex: 24 / FADM Date: 11/21/24 Loc: .HHCX Attending Dr: Erik Avendano MD Ordering Physician: Erik Avendano MD Date of Service: 11/21/24 Procedure(s): XR ribs LT min 3V w CXR1V Accession Number(s): [id number] cc: Erik Avendano MD; Genny Santiago WOOL BUYER EXAMINATION: XR RIBS, LEFT CLINICAL INFORMATION: pain COMPARISON: May 05, 2016. TECHNIQUE: AP chest. Oblique views left hemithorax. FINDINGS: No consolidation pleural effusion or pneumothorax. Cardiomediastinal silhouette size is normal. No acute cortical disruption or irregularity in the ribs, left hemithorax. XR/XR ribs LT min 3V w CXR1V IMPRESSION: No acute airspace disease. No acute rib fracture, left hemithorax. Negative exam. Electronically signed by: Reinaldo Bahena MD 11/21/2024 01:42 PM EDT RP Dictated By: Reinaldo Johnson MD Signed By: <Electronically signed by Reinaldo Gee MDin OV> 11/21/24 1342 DD/ 1241 TD/TT: 11/21/24 1300 Monitoring Engineer: Erik Avendano MD IMG XR PROCEDURES Edited Result - Final * Hepatitis C Viral RNA, Quantitative, Real-Time PCR (10/20/2023 11:02 AM EDT) Hepatitis C Viral Load <15 NOT DETECTED NOT DETECTED IU/mL [facility] HCV Log PCR <1.18 NOT DETECTED NOT DETECTED Log IU/mL [facility] Comment:For additional infor mation on this test, go to:http://education.Orthocone/faq/NDC11j0(This link is being provided for informational/educational purposes only.)THIS TEST WAS PERFORMED AT:[facility] [place] [id number] LYONS MD Blood 10/20/2023 11:0 2 AM EDT 10/20/2023 2:29 PM EDT us Genny Santiago WOOL BUYER LAB BLOOD ORDERABLES Final Res ult [facility] [address] [place] [address] [phone] * HIV-1/2 Antigen and Antibodies, Fourth Generation, with Reflexes (10/20/2023 11:02 AM EDT) Pathologist [facility] HIV AB/AG Nonreactive Nonreactive [facility] Comment:HIV-1 p24 Ag and/or HIV-1/HIV-2 Ab not detected.A test result that is nonreactive does not exclude thepossibility of exposure to or infection with HIV-1 and/orHIV-2. Nonreactive results in this assay for individualswith prior exposure to HIV-1 and/or HIV-2 may be due toantigen and antibody levels that are below the limit ofdetection of this assay.The [employer] HIV Ag/Ab Combo assay result andsupplemental assay results should be interpreted inconjunction with the patient's clinical presentation,history and other laboratory results. If the results areinconsistent with clinical evidence, additional testing issuggested to confirm the result. Blood Venous blood specimen / Unknown 10/20/2023 11:02 AM EDT 10/20/2023 2:29 PM EDT us Genny PAULINO LAB BLOOD ORDERABLES Final Res ult [facility] [address] [place] [phone] from Last 3 Months or Most Recently Relevant to Health Maintenance Insurance [employer] Care Teams Shirrer Relationship Specialty Start Date End Date Genny Santiago FNP [address] [place] [address] PCP - General Family Medicine 04/04/22
--- OUTSIDE RECORDS SUMMARY | 2025-01-08 10:01 | XMS_ITS | Encounter Summary ---
Author Organization [employer] Address [address] [facility] [address] [place] [address] Care Team Providers Care Asbestos Cloth Inspector Name Role Phone Genny Santiago Primary Care Provider [phone] Reason for Visit * Reason Onset Date Comments Appointment Request 07/17/2023 Encounter Details Date Type Department Care Team (Late st Contact Info) Description 07/17/2023 Telephone [facility] MEDICINE [address] [place] [address] Genny Santiago FNP [address] [place] [address] Appointment Request Social History Tobacco Use Types Packs/Day Years Used Date Smoking Tobacco: Never Smokeless Tobacco: Never Alcohol Use Standard Drinks/Week Comments Never 0 (1 standard drink = 0.6 oz pur e alcohol) Depression Answer Date Recorded Patient Health Questionnaire-9 Score 9 06/19/2023 Patient Health Questionnaire-9 Score 9 06/19/2023 Last PHQ-9: Questionnaire Data Not on file 0 06/19/2023 Housing Stability Answer Date Recorded What is your housing situation today? I have ayad soares 03/15/[address] you li ve. Do you have problems with any of the following? None of the above 03/15/2023 Food Insecurity Answer Date Recorded Within the past 12 months, y ou worried that your food would run out before you got money to buy more: Never True 03/15/2023 Within the past 12 months,th e food you bought just didn't last and you didn't have enough money to get more: Never True 05/2022 Transportation Answer Date Recorded In the past 12 months, has l ack of transportation kept you from medical appts, meetings, work or from getting things needed for daily living? No 03/15/2023 Utilities Answer Date Recorded In the past 12 months, has t he electric, gas, oil or water company threatened to shut off services in your home? No 03/15/2023 Depression Answer Date Recorded Patient Health Questionnaire-2 Score 3 06/19/2023 Comments Unknown Sex and Gender Information Value Date Recorded Sex Assigned at Female 03/14/2022 10:22 AM EDT Legal Sex Female 10:22 AM EDT Gender Identity Female 03/14/2022 10:22 AM EDT Sexual Orientation Straight 03/14/2022 10 :22 AM EDT documented as of this encounter Miscellaneous Notes * Telephone Encounter - Eric Carranza - 07/17/2023 11:58 AM EST Tc from patient returning call to schedule derm appt however there was no availability and the patient was unsure due to never requested for a derm appt documented in this encounter Plan of Treatment Upcoming Encounters Date Type Department Care Team ([facility] st Contact Info) Description 04/04/2025 8:30 AM EST Procedure Visit [facility] MED & PEDS [address] [place] [address] Genny Santiago FNP [address] [place] [address] documented as of this encounter Visit Diagnoses Not on filedocumented in this encounter Additional Health Concerns Assessment Noted Time PHQ-9 Depression Total Score: 9 06/19/19 24 11:52 AM EST documented as of this encounter Care Teams Asbestos Cloth Inspector Relationship Specialty Start Date End Date Genny Santiago FNP [address] [place] [address] PCP - General Family Medicine 04/04/22 documented as of this encounter
--- OUTSIDE RECORDS SUMMARY | 2025-01-08 10:01 | XMS_ITS | Encounter Summary ---
Author Organization [employer] Address [address] [facility] [address] [place] [address] Care Team Providers Care Trouble Lineman Name Role Phone AndersonGenny pizarro LORA Primary Care Provider [phone] Encounter Details Date Type Department Care Team (Late st Contact Info) Description 02/01/2023 Orders Only [facility] MED & PEDS [address] [place] [address] Gayathri Browne LPN ERRONEOUS ENCOUNTER--DISREGARD Social History Tobacco Use Types Packs/Day Years Used Date Smoking Tobacco: Never Smokeless Tobacco: Never Alcohol Use Standard Drinks/Week Comments Never 0 (1 standard drink = 0.6 oz pur e alcohol) Depression Answer Date Recorded Patient Health Questionnaire-9 Score 16 02/03/2023 Depression Answer Date Recorded Patient Health Questionnaire-2 Score 4 02/03/2023 Comments Unknown Sex and Gender Information Value [...] Answer Date of Assessment Author Patient Health Questionnaire-2 Score 4 02/03/2023 4:09 PM EDT Stuart Nava [place] * If you checked off any problems on this questionnaire so far, Question Answer Date of Assessment Author How difficult have these problems made it for you to do your work, take care of things at home, or get along with other people? Very difficult 02/03/2023 4:09 PM EDT Stuart Nava [place] * Over the past 2 weeks, how often have you been bothered by any of the following problems? Question Answer Date of Assessment Author Little interest or pleasure in doing things More than half the days 02/03/2023 4:09 PM EDT Stuart Nava MA Feeling down, depressed, or hopeless More than half the days 02/03/2023 4:09 PM EDT Stuart Naav MA Trouble falling or staying asleep, or sleeping too much Nearly every day 02/03/2023 4:09 PM EDT Stuart Nava MA Feeling tired or having little energy Nearly every day 02/03/2023 4:09 PM EDT Stuart Nava MA Poor appetite or overeating Nearly every day 02/03/2023 4:09 PM EDT Stuart Nava MA Feeling bad about yourself - or that you are a failure or have let yourself or your family down More than half the days 02/03/2023 4:09 PM EDT Stuart Nava MA Trouble concentrating on things, such as reading the newspaper or watching television Not at all 02/03/2023 4:09 PM EDT Stuart Nava MA Moving or speaking so slowly that other people could have noticed? Or the opposite - being so fidgety or restless that you have been moving around a lot more than usual. Several days 02/03/2023 4:09 PM EDT Stuart Nava MA Thoughts that you would be better off or hurting yourself in some way Not at all 02/03/2023 4:09 PM EDT Stuart Nava MA Patient Health Questionnaire-9 Score 16 02/03/2023 4:09 PM EDT Stuart Nava MA documented as of this encounter Plan of Treatment Upcoming Encounters Date Type Department Care Team (Late st Contact Info) Description 04/04/2025 8:30 AM EST Procedure Visit [facility] PEDS [address] [place] [address] Genny Santiago FNP [address] [place] [address] documented as of this encounter Visit Diagnoses Diagnosis ERRONEOUS ENCOUNTER--DISREGARD documented in this encounter Additional Health Concerns Assessment Noted Time PHQ-9 Depression Total Score: 19 023 10:26 AM EDT documented as of this encounter Care Teams Trouble Lineman Relationship Specialty Start Date End Date Genny Santiago FNP [address] [place] [address] PCP - General Family Medicine 04/04/22 documented as of this encounter
[2025-01-08 15:15] LABS: Alanine Aminotransferase 15 U/L (0-31); Albumin Level 4.2 g/dL (3.5-5.0); Alkaline Phosphatase 101 U/L (39-117); Anion Gap 10 (12-20); Aspartate Amino Transferase 25 U/L (5-31); Blood Urea Nitrogen 9 mg/dL (9-16); Calcium 8.9 mg/dL (8.4-10.2); Carbon Dioxide 26 mmol/L (22-29); Chloride 106 mmol/L (96-108); Cholesterol 147 mg/dL (<200); Estimated Glomerular Filt Rate > 60; HDL Cholesterol 48 mg/dL (>40); Potassium 4.2 mmol/L (3.3-5.1); Sodium 138 mmol/L (135-145); Total Protein 7.6 g/dL (6.5-8.0); Triglycerides 51 mg/dL (<150)
[2025-01-08 15:20] LABS: Hemoglobin A1C 106.4177 umol/L; Total Hemoglobin (HGBA1C) 3044.7663 umol/L
[2025-01-10 22:13] LABS: TS Negative Control Passed; TS Panel A 0; TS Panel B 0; TS Positive Control Passed; TSpotTB Negative (Negative)
== END 2025-01-08 09:28 | disposition home or self-care (01) ==
LOC: HO.CHCLDS 09:27
PROVIDERS: Visit Provider Registered Nurse
DX: Z00.00 Encounter for general adult medical examination without abnormal findings (principal); Z13.6 Encounter for screening for cardiovascular disorders; Z13.29 Encounter for screening for other suspected endocrine disorder; Z11.1 Encounter for screening for respiratory tuberculosis; Z13.1 Encounter for screening for diabetes mellitus
CPT/HCPCS: 36415; 80053; 80061; 82306; 83036; 84443; 86481

== ENCOUNTER 2025-03-14 13:01 | Outpatient (REF) | payer OTHER, SELFPAY ==
--- OUTSIDE RECORDS SUMMARY | 2025-03-14 14:49 | XMS_ITS | Clinical Summary ---
Author Organization [facility] Address [address] [place] [address] Care Team Providers Care Manager Retail Name Role Phone Unavailable Primary Care Provider [...] Cervical Cancer Screening: P ap Smear 2022 Depression Screening 05/15/2024 COVID-19 Vaccine (1 - 2023-2 5 season) 2025 Influenza Vaccine (#1) 2025 RSV Immunization Adult Patie nts (1 - 1-dose 75+ series) 2076 HIB Vaccines Aged Out No longer eligi [...]
[2025-03-14 18:00] LABS: MANUAL DIFF FLAG NO
[2025-03-14 18:14] LABS: Hematocrit 38.3 % (37.0-47.0); Hemoglobin 11.6 g/dl (12.0-16.0); Imm Gran Abs Auto 0.02 X10*3/uL (0.00-0.03); Imm Gran Pct Auto 0.2 % (0.0-0.4); Lymphocytes Absolute Auto 2.5 X10*3/uL (1.2-4.9); Mean Corpuscular HGB Conc 30.3 g/dl (31.0-35.0); Mean Corpuscular Hemoglobin 27.1 pg (27.0-33.0); Mean Corpuscular Volume 89.5 fL (80.0-98.0); NRBC Abs Auto 0.000 X10*3/uL (0.0-0.012); NRBC Pct Auto 0.0 /100WBC (0.0-0.2); Platelet Count 318 X10*3/uL (160-400); Red Blood Count 4.28 X10*6/uL (4.20-5.50); White Blood Count 10.0 X10*3/uL (4.8-10.8)
[2025-03-14 18:20] LABS: Alanine Aminotransferase 16 U/L (0-31); Albumin Level 4.3 g/dL (3.5-5.0); Alkaline Phosphatase 112 U/L (39-117); Anion Gap 10 (12-20); Aspartate Amino Transferase 22 U/L (5-31); Blood Urea Nitrogen 9 mg/dL (9-16); Calcium 9.0 mg/dL (8.4-10.2); Carbon Dioxide 28 mmol/L (22-29); Chloride 105 mmol/L (96-108); Estimated Glomerular Filt Rate > 60; Potassium 4.3 mmol/L (3.3-5.1); Sodium 139 mmol/L (135-145); Total Protein 8.0 g/dL (6.5-8.0)
[2025-03-15 07:28] LABS: HBS Num1 251.73 mIU/mL (0-7.99); HBc Num1 0.12 S/CO (0.00-0.79); HBsAGNum1 0.43 S/CO (0.00-0.99); Hepatitis B Surface Antigen Negative (Negative); ~HepC Num1 0.09 S/CO (0.00-0.79); ~Hepatitis B Surface Antibody REACTIVE (Nonreactive); ~Hepatitis C Antibody Nonreactive (Nonreactive)
== END 2025-03-14 13:02 | disposition home or self-care (01) ==
LOC: HO.HKASLDS 13:01
PROVIDERS: PCP Registered Nurse; Visit Provider Student in an Organized Health Care Education/Training Program
DX: Z51.81 Encounter for therapeutic drug level monitoring (principal); M08.80 Other juvenile arthritis, unspecified site; Z79.631 Long term (current) use of antimetabolite agent; Z79.899 Other long term (current) drug therapy
CPT/HCPCS: 36415; 80053; 85025; 85652; 86140; 86200; 86431; 86704; 86706; 86803; 87340

== ENCOUNTER 2025-03-14 13:01 | Outpatient (AMB) | payer OTHER, SELFPAY ==
--- NOTE | 2025-03-14 13:06 | A.OFFVIS_ITS ---
Vital Signs 03/14/25 13:07 Height 5 ft 4 in Weight 232 lb 5.875 oz BMI 39.9 BP 122/76 Blood Pressure Location Lt brachial Position Sitting Pulse 78 Pulse Source Pulse Oximeter Pulse Oximetry (%) 99 Oxygen Delivery Method Room Air Intake Visit Reasons: SUSY Intake Note: Patient is a new patient externally referred by Genny Santiago from [facility]. Patient has pain in most of her joints for all her life. Patient is currently not taking any meds for this. Gold Miner Required: No Accompanied by: Self / Same As Patient Allergies environmental allergies Allergy (Mild, Verified 03/14/25 13:13) itching, sneezing, watery eyes dust mites Allergy (Mild, Uncoded 03/14/25 13:13) sneezing, itching watery eyes Medication List - Last Reconciled 03/14/25 by Page Garay MD bupropion HCl XL (Wellbutrin XL) 300 mg PO QAM cetirizine (Zyrtec) 10 mg PO DAILY PRN famotidine (Pepcid AC) 20 mg PO DAILY fluoxetine 20 mg PO DAILY Is last menstrual period known: Yes Last menstrual period: 02/23/25 HPI Comments Details: Patient is a 24-year-old female with juvenile idiopathic arthritis here today to establish care Diagnosed with SUSY at around 13 years - initially given Tylenol and ibuprofen without much efficacy - Oral methotrexate, age 17. States she would take onlky 1 tablet every week - Humira every 2 weeks. Course complicated by injection site reactions. - Despite Humira she continued to have a flare every 3 weeks - Flares were treated with Tylenol and/or prednisone depending on the severity of the flare Currently - Stopped Humira about 1 year ago - Noticed worsening of sx off Humira - AM stiffness involving the knees, hips, hands and wrists. Also noting the trapezius area as a location of stiffness Fam Hx: maternal and paternal grandmothers had RA, mom with PsO currently being evaluated for PsA Social history: in a relationship, not . No fertility desires for the next 5 years. [facility] Medical History (Updated 03/14/25 @ 13:45 by Page Garay MD) Anxiety Acid reflux Juvenile idiopathic arthritis Family History (Updated 03/14/25 @ 13:24 by Cristina Charles [facility]) Mother Diverticulitis Psoriasis Father Hypertension Osteoporosis Osteoarthritis Maternal Grandfather Lung cancer Maternal Aunt Thyroid disease Paternal Grandfather Diabetes Paternal Grandmother Diabetes Skin cancer Paternal Aunt Skin cancer Diabetes Social History (System 06/20/23 @ 12:01 by Rosalind Reese) Alcohol intake: never Patient Tobacco Use Status: Never used Tobacco Female Reproductive History Menstrual Date of last menstrual period: 02/23/25 Review of Systems Narrative Review of Systems Constitutional: Denies fever, chills, weight loss ENT: Denies vision changes, eye pain or eye redness, dental caries, dry mouth GI: Denies nausea, vomiting, diarrhea, abdominal pain, change in BM Pulm: Denies SOB, ELKINS, hemoptysis, wheezing Cards: Denies chest pain, palpitations Skin: Denies Raynaud's, rash, nail changes, photosensitivity, FILLER SPREADER: Denies headaches, weakness, paresthesias, recurrent falls MSK: as per HPI All other systems reviewed and are unremarkable except noted above Physical Exam Exam Exam: Vital signs reviewed Physical Examination CONSTITUITIONAL Patient alert and cooperative. Well appearing and in no apparent painful distress MSK Hands * Right Hand: Able to make a fist. No swelling or tenderness to palpation of the MCPs, PIPs or DIPs. * Left Hand: Able to make a fist. No swelling or tenderness to palpation of the MCPs, PIPs or DIPs. TTP 5th PIP Wrists * Right Wrist: Full ROM to flexion and extension. No swelling but TTP * Left Wrist: Full ROM to flexion and extension. No swelling but TTP Elbows * Right Elbow: Full ROM. No swelling or TTP. No TTP of the medial epicondyle. No TTP of the lateral epicondyle * Left Elbow: Full ROM. No swelling or TTP. No TTP of the medial epicondyle. No TTP of the lateral epicondyle Shoulders * Right shoulder: Full ROM. No swelling noted. No TTP of the AC joint. No TTP of the subacromial bursa. No TTP of the posterior shoulder * Left shoulder: Full ROM. No swelling noted. TTP of the AC joint. No TTP of the subacromial bursa. No TTP of the posterior shoulder Hip bursa: TTP of the left GTB. No TTP of the right GTB Knees * Right knee: Full ROM. No swelling noted. No TTP of the knee joint line. No TTP of pes anserine bursa * Left knee: Full ROM. No swelling noted. TTP of the knee joint line. TTP of pes anserine bursa. Ankles * Right ankle: Good ankle dorsiflexion and plantar flexion. No swelling. No TTP of the ankle joint * Left ankle: Good ankle dorsiflexion and plantar flexion. No swelling. No TTP of the ankle joint Feet * Right foot: Negative squeeze test * Left foot: Negative squeeze test Tender points? * No tenderness to palpation of the bilateral trapezius, supraspinatus, anterior costochondral junctions, bilateral suboccipital muscle insertions SKIN No rashes Vital Signs: BMI result Body Mass Index 39.9 Results Reviewed Results Reviewed: Laboratory Tests 10/20/23 01/08/25 11:02 09:28 WBC 8.6 RBC 4.29 Hgb 12.1 Hct 38.6 Plt Count 330 Sodium 138 Potassium 4.2 Chloride 106 Carbon Dioxide 26 BUN 9 Creatinine 0.78 AST 25 ALT 15 25-OH Vitamin D Total 25.4 L Laboratory Tests 01/08/25 09:28 TB Test (T-Spot) Com Negative Assessment & Plan Assessment & Plan (1) Juvenile idiopathic arthritis: Code(s): M08.80 - Other juvenile arthritis, unspecified site Category: Medical Plan: Plan - Methotrexate 15mg PO weekly - Folic acid 1mg daily - Labs today: CBC, CMP, ESR, CRP, Hepatitis panel, RF, CCP - RTC 3 months - Labs before visit: CBC, CMP, ESR, CRP (2) Encounter for methotrexate monitoring: Code(s): Z51.81 - Encounter for therapeutic drug level monitoring; Z79.631 - [facility] (current) use of antimetabolite agent Plan: #Long-term Current Use of Methotrexate Discussed with patient the benefits and risks of methotrexate for managing their rheumatic condition Benefits include reduced pain, reduced mortality, maintenance of remission and reduction of flares Risks include oral ulcers, photosensitivity, hepatotoxicity, hematologic toxicity, pneumonitis, flu-like symptoms (especially day after administration), nodulosis, lymphomas ? Limit alcohol and avoid Bactrim ? Monitoring: CBC, BMP, LFTs every 3-4 months and hepatitis serologies as needed ? Methotrexate is teratogenic. If planning need to discontinue 3 months prior to conception Plan I spent 45 minutes reviewing the record and labs, taking a history, examining the patient, discussing the treatment plan, ordering diagnostic work up and documenting in the medical record Orders: Orders Complete Blood Count Auto Diff Today M08.80 - Other juvenile arthritis, unspecified site Cyclic Citrullinated Peptide Today M08.80 - Other juvenile arthritis, unspe cified site Hepatitis B,C Profile Today M08.80 - Other juvenile arthritis, unspecified site, Z79.899 - Other assisted (current) drug therapy Complete Blood Count Auto Diff 4 Months Z79.899 - Other assisted (current) drug therapy C Reactive Protein 4 Months Z79.899 - Other dedicated intermodal truck driver (current) drug therapy Comprehensive Met. Panel Today M08.80 - Other juvenile arthritis, unspecified site C Reactive Protein Today M08.80 - Other juvenile arthritis, unspecified site Erythrocyte Sedimentation Rate Today M08.80 - Other juvenile arthritis, unspecified site Rheumatoid Factor Today M08.80 - Other juvenile arthritis, unspecified site Comprehensive Met. Panel 4 Months Z79.899 - Other dedicated intermodal truck driver (current) drug therapy Erythrocyte Sedimentation Rate 4 Months Z79.899 - Other assisted (current) drug therapy Medications: New methotrexate sodium 15 mg (6 x 2.5 mg) PO QWEEK 78 tabs 1RF 90 days M08.80 - Other juvenile arthritis, unspecified site folic acid 1 mg PO DAILY 90 tabs 1RF M08.80 - Other juvenile arthritis, unspecified site Coding Level of Care Code New Pt Level 4 (03286) Complex EM visit Add On G2211 Diagnoses Juvenile idiopathic arthritis M08.80 Encounter for methotrexate monitoring Z51.81; Z79.631
[2025-03-14 13:07] VITALS: BP 122/76; PULSE 78; O2SAT 99; BMI 39.9
--- OUTSIDE RECORDS SUMMARY | 2025-03-14 14:08 | XMS_ITS | Encounter Summary ---
Author Organization [employer] Address [address] [facility] [address] [place] [address] Care Team Providers Care Medical Orderly Name Role Phone Genny Santiago Primary Care Provider [phone] Encounter Details Date Type Department Care Team (Latest Contact Info) Description 02/03/2025 Results Follow-Up [facility] MED & PEDS [address] [place], [place] [id number] Genny Santiago FNP [address] [place], [place] [phone] T-SPOT .TB, Comprehensive Metabolic Panel, TSH W/Reflex to FT4, Additional followed-up results: 3 Social History Tobacco Use Types Packs/Day Years [...] is your housing situation today? I have yaad soares 12/26/[address] you [...] Description 04/04/2025 8:30 AM EST Procedure Visit [facility] PEDS [address] [place] [address] Genny Santiago FNP [address] [place] [address] documented as of this encounter Visit Diagnoses Not on filedocumented in this encounter Additional Health Concerns Assessment Noted Time PHQ-9 Depression Total Score: 16 025 10:43 AM EDT documented as of this encounter Care Teams Medical Orderly Relationship Specialty Start Date End Date Genny Santiago FNP [address] [place] [address] PCP - General Family Medicine 04/04/22 documented as of this encounter
--- OUTSIDE RECORDS SUMMARY | 2025-03-14 14:08 | XMS_ITS | Encounter Summary ---
Author Organization [employer] Address [address] [facility] [address] [place] [address] Care Team Providers Care Manufacturing Automation Engineer Name Role Phone Genny Santiago Primary Care Provider [phone] Reason for Visit * Reason Onset Date Comments Appointment Request 07/17/2023 Encounter Details Date Type Department Care Team (Late st Contact Info) Description 07/17/2023 Telephone [facility] [address] [place] [address] Genny Santiago FNP [address] [place] [address] Appointment Request Social History Tobacco Use Types [...] Upcoming Encounters Date Type Department Care Team ([facility] st Contact Info) Description 04/04/2025 8:30 AM EST Procedure Visit [facility] MED & PEDS [address] [place] [address] Genny Santiago FNP [address] [place] [address] documented as of this encounter Visit Diagnoses Not on filedocumented in this encounter Additional Health Concerns Assessment Noted Time PHQ-9 Depression Total Score: 9 06/19/19 24 11:52 AM EST documented as of this encounter Care Teams Manufacturing Automation Engineer Relationship Specialty Start Date End Date Genny Santiago FNP [address] [place] [address] PCP - General Family Medicine 04/04/22 documented as of this encounter
--- OUTSIDE RECORDS SUMMARY | 2025-03-14 14:08 | XMS_ITS | Clinical Summary ---
Author Organization [employer] Address [address] [facility] 7t [place] [address] Care Team Providers Care Twister Doffer Name Role Phone Genny Santiago LORA Primary Care Provider [phone] Allergies Active Allergy Reactions Criticality Noted Date [...] days no need refills 16 g 5 10/05/19 26 Active Multiple Vitamins-Mineral s (WOMENS MULTI GUMMIES PO)Indications:E ncounter for routine history and physical examination of adult Take 1 tablet by mouth Once per day. Active FLUoxetine (PROzac) 10 MG capsuleIndicatio ns:Anxiety with depression Take 1 capsule (10 mg) by mouth Once per day. 90 capsule 1 5 01/04/20 Active famotidine (Pepcid) 20 MG tabletIndication s:Mild acid reflux Take 1 tablet (20 mg) by mouth before breakfast and before evening meal. 60 tablet 1 5 01/04/20 Active buPROPion XL (Wellbutrin XL) 300 MG 24 hr tablet TAKE 1 TABLET BY MOUTH EVERY MORNING. DO NOT CRUSH, CHEW OR SPLIT. 90 tablet 1 5 Active Active Problems Problem Noted Date Diagnosed Date Mild acid reflux 01/05/2025 Assessment & Plan (01/05/2025 2:21 PM EDT): - Increased frequency of acid reflux symptoms. - Start famotidine up to twice daily before meals. Avoid dietary triggers. Follow-up in 2-3 months to assess response. Juvenile idiopathic arthritis ([facility]) 09/07/19 Assessment & Plan (01/05/2025 2:14 PM EDT): - Juvenile arthritis symptoms have worsened due to discontinuation of Humira. 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 - Placed urgent referral to rheumatology for [...] Plan (09/06/2022 1:44 PM EDT): -Followed [facility] Dr. Perdue -Continues on Humira [...] interaction with fluoxetine. -BH: OP therapy: [facility] ([facility]) Therapist: Harman Assessment & Plan (11/17/2023 9:52 AM EDT): -Continue fluoxetine 10mg daily -Start bupropion 150mg daily x 1 week. May increase to 300mg if tolerating well w/o SE -BH: OP therapy: [facility] ([facility]) Therapist: Harman Assessment & Plan (10/22/2023 [...] include resilience. PLAN: 1. Follow up with [facility]: Not recommended for follow-up 2. Patient goal [...] (01/05/2025): Last PE: 01/03/25 Dental: referral to [facility] dental 06/19/23 Pap: due for annual pap while taking Humira. Assessment & Plan (01/05/2025 2:22 PM EDT): Encouraged to schedule pap. Routine lab work ordered. Allergies 09/06/2022 Assessment & Plan (01/05/2025 2:19 PM EDT): -Allergy testing through ENT and reports tested positive to the following allergens: Grass, trees, cat and dog dander, cockroaches, dust, mold -Referred to project estimator in August 2022 for testing of food allergies, reports initial consult scheduled for Feb 2023 -Epi pen PRN -Referred to re-establish with allergies: 01/05/25 Assessment & Plan (10/22/2023 4:33 PM EDT): -Allergy testing through ENT and reports tested positive to the following allergens: Grass, trees, cat and dog dander, cockroaches, dust, mold -Referred to project estimator in August 2022 for testing of food allergies, reports initial consult scheduled for Feb 2023 -Epi pen PRN -Continues with allergy shots Assessment & Plan (06/19/2023 12:29 PM EST): -Allergy testing through ENT and reports tested positive to the following allergens: Grass, trees, cat and dog dander, cockroaches, dust, mold -Referred to project estimator in August 2022 for testing of food allergies, reports initial consult scheduled for Feb 2023 -Epi pen PRN -Plan to restart allergy shots (was informed duration would be weekly injections x 3-5 years) Assessment & Plan (11/05/2022 8:19 PM EDT): -Allergy testing through ENT and reports tested positive to the following allergens: Grass, trees, cat and dog dander, cockroaches, dust, mold -Referred to project estimator in August 2022 for testing of foot allergies, reports initial consult scheduled for Feb 2023 -Epi pen PRN Assessment & Plan (09/06/2022 1:47 PM EDT): -Allergy testing through ENT and reports tested positive to the following allergens: Grass, trees, cat and dog dander, cockroaches, dust, mold -Referral to project estimator on 09/06/22 for further eval of food [...] Encounters Date Type Department Care Team Description 02/03/2025 Results Follow-Up [facility] [address] [place] [address] Genny Santiago FNP T-SPOT .TB, Comprehensive Metabolic Panel, TSH W/Reflex to FT4, Additional followed-up results: 3 01/28/2025 Refill [facility] [address] [place] [address] Shiloh Fish MD 01/03/2025 9:30 AM EDT Office Visit [facility] [address] [place] [address] Genny Santiago FNP Encounter for routine history and physical examination of adult (Primary Dx); Dietary counseling; Exercise counseling; Allergy, subsequent encounter; Routine health maintenance; Anxiety with depression; Juvenile idiopathic arthritis (CMS/HCC); Recurrent sinusitis; Mild acid reflux 01/03/2025 Travel 01/02/2025 Telephone [facility] [address] [place], [place] [phone] Genny Santiago FNP Chart Prep 12/26/2024 Patient Outreach [facility] [address] [place] [address] Genny Santiago FNP Pre-visit Planning (SDOH screening negative and Tobacco screening negative) from Last 3 Months Immunizations Immunization Administration Dates Next Due DTaP 09/19/2007, 5,06/24/2002,01/11,2001 HPV 9-Valent 06/18/2015,02/09/2015 HPV, Quadrivalent 03/14/2013 Hep A, ped/adol, 2 dose 08/13/2015,02/09/2015 Hep B, Adolescent or Pediatric 01/11/2002,2001,2001 Hib ([facility]) 08/23/2002,01/11/2002,2001 IPV 05/27/2005, 2,2001,07/11 Influenza injectable quadriv [...] Description 04/04/2025 8:30 AM EST Procedure Visit [facility] [address] [place] [address] Genny Santiago FNP [address] [place] [address] Health Maintenance Due Date Last Done Comments Chlamydia and Gonorrhea Screening 2001 Family Planning (PISQ) 2016 Pap Smear 2022 Influenza Vaccine (#1) 2025 4, 02/03/2023, 01/27/2022, Additional history exists Depression Monitoring [...] Procedure Name Priority Date/Time Associated Diagnosis Comments VITAMIN D,25-OH,TOTAL,IA Routine 01/08/2025 9:28 AM EDT Encounter for routine history and physical examination of adult HEMOGLOBIN A1C Routine 01/08/2025 9:28 AM EDT Encounter for routine history and physical examination of adult LIPID PANEL, STANDARD Routine 01/08/2025 9:28 AM EDT Encounter for routine history and physical examination of adult TSH W/REFLEX TO FT4 Routine 01/08/2025 9 :28 AM EDT Encounter for routine history and physical examination of adult COMPREHENSIVE METABOLIC PANEL Routine 01/08/2025 9:28 AM EDT Encounter for routine history and physical examination of adult T-SPOT(R).TB Routine 01/08/2025 9:28 AM EDT Encounter for routine history and physical examination of adult HEPATITIS C VIRAL RNA, QUANTITATIVE, REAL-TIME PCR Routine 10/20/2023 11:02 AM EDT Encounter for routine history and physical examination of adult HIV 1/2 ANTIGEN/ANTIBODY, FOURTH GENERATION W/RFL Routine 10/20/2023 11:02 AM EDT Encounter for routine history and physical examination of adult from Last 3 Months or Most Recently Relevant to Health Maintenance Results * (ABNORMAL) Vitamin D, 25-Hydroxy, Total, Immunoassay (01/08/2025 9:28 AM EDT) [facility] Vitamin D 25-OH Total 25.4(L) >30 ng/mL [facility] Comment: Health Based Reference Values*< 20 ng/mL [id number] ng/mL Insufficient> 30 ng/mL Sufficient*Carol VIDAL. N Engl J Med. 2007;357:266-280There is no well-established upper level of normal vitamin Dlevels. Some laboratories use 50 ng/mL as an upper limit ofnormal. However, toxicity is patient-dependent and may occurat any level. Careful correlation with the patient'spresentation is necessary and, if there is concern forvitamin D toxicity, treatment should be consideredirrespective of the serum level.Care must be taken in interpreting Vitamin D results fromdifferent laboratories and methodologies. Published datademonstrated that results from patients undergoinghemodialysis may show a negative bias when tested withvarious automated 25-OH vitamin D assays when compared toLC-MS/MS.When testing samples from patients whose predominant form ofVitamin D is Vitamin D2, such as patients receiving VitaminD2 supplementation, results that are subtherapeutic shouldbe confirmed with another method such as LC-MS/MS. Blood Venous blood specimen / Unknown 01/08/2025 9:28 AM EDT 01/08/2025 2:37 PM EDT Genny Santiago [facility] LAB BLOOD ORDERABLES Final Res ult [facility] [address] [place] [phone] * T-SPOT??.TB (01/08/2025 9:28 AM EDT) [facility] T Spot TB Negative Negative [facility] Comment:A negative test resu lt does not exclude the possibilityof exposure to or infection with Mycobacteriumtuberculosis (M. tuberculosis). Patients with recentexposure to TB infected individuals exhibiting anegative T-SPOT.TB result should be considered forretesting within 6 weeks or if other relevant clinicalsymptoms indicate. Results from T-SPOT.TB testing mustbe used in conjunction with each individual'sepidemiological history, current medical status,and results of other diagnostic evaluations.The T-SPOT.TB test is qualitative and results arereported as positive, borderline, or negative, giventhat the test controls perform as expected. In linewith the Centers for Disease Control and Prevention's2010 recommendation to report quantitative measurementsalongside the qualitative result, the laboratoryprovides spot counts for informational purposes only.The T-SPOT.TB test should not be interpreted as aquantitative test. TS PANEL A 0 [facility] TS PANEL B 0 [facility] Negative Control Passed [facility] Positive Control Passed [facility] Comment:For additional infor salomón, please refer tohttp://education.[employer]/faq/LRZ450(This link is being provided for informational/educational purposes only.)THIS TEST WAS PERFORMED AT:[id number] [place] [address]VPVUVLFGEO HI MD,PHD 01/08/2025 9:28 AM EDT 01/08/2025 2:37 PM EDT Genny [employer] [employer] LAB BLOOD ORDERABLES Final Res ult Performing Organization Address [facility]/ZIP Co de Phone Number [facility] [address] [place] [phone] * TSH W/Reflex to FT4 (01/08/2025 9:28 AM EDT) TSH reflex Free T4 0.70 0.32 - 4.0 uIU/mL [facility] Blood Venous blood specimen / Unknown 01/08/2025 9:28 AM EDT 01/08/2025 2:37 PM EDT Genny Santiago [employer]PRESENT[employer] LAB BLOOD ORDERABLES Final Res ult Performing Organization Address [facility]/ZIP Co de Phone Number [facility] [address] [place] [phone] * Hemoglobin A1c (01/08/2025 9:28 AM EDT) Hemoglobin A1c 5.3 <6.0 % [facility] Comment:Hemoglobin A1C Refer ence Range Adults: 4.8 - 6.0 % Non diabetic: < 6.0 % Goal: < 7.0 %Additional Action Suggested: > 8.0 %Note: Hemoglobin A1c results are invalid for patients with abnormal amounts of HbF. Blood transfusions may impact the HbA1c concentration in the patient sample. Estimated Average Glucose 105 mg/dL [facility] Comment:eAG = Estimated ave rage glucose which is %A1C expressed asaverage glucose, using the formula of the B7V-LorvwkxLxxuozu Glucose study (ADAG), Diabetes Care, Vol.31,#8,Dec. 2007 Blood Venous blood specimen / Unknown 01/08/2025 9:28 AM EDT 01/08/2025 2:37 PM EDT Genny Santiago [employer] REPRESENT[employer] LAB BLOOD ORDERABLES Final Res ult Performing Organization Address [facility]/ZIP Co de Phone Number [facility] [address] [place] [phone] * Lipid Panel, Standard (01/08/2025 9:28 AM EDT) Triglycerides 51 <150 mg/dL [facility] Comment:Desirable Triglyceri de: less than 150 mg/dLBorderline High Triglyceride 150-199 mg/dLHigh Triglyceride: 200-499 mg/dLVery High Triglyceride: greater than or equal to 5OO mg/dL Cholesterol 147 <200 mg/dL [facility] Comment:Desirable Cholestero l: less than 200 mg/dLBorderline High Cholesterol: 200-239 mg/dLHigh Cholesterol: greater than 239 mg/dL LDL Cholesterol Calculated 89 <100 mg/dL [facility] Comment:Desirable LDL: less than 100 mg/dLNear Optimal/Above Optimal LDL: 110- 129 mg/dLBorderline High LDL: 130-159 mg/dLHigh LDL: 160-189 mg/dLVery High LDL: greater than or equal to 190 mg/dL HDL Cholesterol 48 >40 mg/dL [facility] Comment:Desirable HDL: great er than 40 mg/dL Note: This HDL assay may give artificially low results in patients with liver disease. Blood Venous blood specimen / Unknown 01/08/2025 9:28 AM EDT 01/08/2025 2:37 PM EDT Genny Santiago [employer] SAL[employer] REPRESENTATIVE LAB BLOOD ORDERABLES Final Res ult Performing Organization Address [facility]/ZIP Co de Phone Number [facility] [address] [place] [phone] * (ABNORMAL) Comprehensive Metabolic Panel (01/08/2025 9:28 AM EDT) Pathologist [facility] Sodium 138 135 - 145 mmol/L [facility] Potassium 4.2 3.3 - 5.1 mmol/L [facility] Chloride 106 96 - 108 mmol/L [facility] Carbon Dioxide 26 22 - 29 mmol/L [facility] Anion Gap 10(L) 12 - 20 [facility] Urea Nitrogen (BUN) 9 9 - 16 mg/dL [facility] Creatinine, Serum 0.78 0.5 - 1.4 mg/dL [facility] Estimated Glomerular Filt Rate >60 [facility] Comment:Chronic Kidney Disea se: Estimated GFR < 60 mL/min/1.73v1Llvygy Kidney Disease: Estimated GFR < 15 mL/min/1.73m2 Glucose 85 60 - 115 mg/dL [facility] Calcium 8.9 8.4 - 10.2 mg/dL [facility] Bilirubin, Total 0.9 0.0 - 1.0 mg/dL [facility] Aspartate Amino Transferase 25 5 - 31 U/L [facility] Alanine Aminotransferase 15 0 - 31 U/L [facility] Total Protein 7.6 6.5 - 8.0 g/dL [facility] Albumin Level 4.2 3.5 - 5.0 g/dL [facility] Alkaline Phosphatase 101 39 - 117 U/L [facility] Blood Venous blood specimen / Unknown 01/08/2025 9:28 AM EDT 01/08/2025 2:37 PM EDT us Genny Santiago [employer] REPRESENT[employer] LAB BLOOD ORDERABLES Final Res ult [facility] [address] [place] [phone] * Hepatitis C Viral RNA, Quantitative, Real-Time PCR (10/20/2023 11:02 AM EDT) Pathologist [facility] Hepatitis C Viral Load <15 NOT DETECTED NOT DETECTED IU/mL [facility] HCV Log PCR <1.18 NOT DETECTED NOT DETECTED Log IU/mL [facility] Comment:For additional infor salomón on this test, go to:http://education.[employer]/faq/VKV79e6(This link is being provided for informational/educational purposes only.)THIS TEST WAS PERFORMED AT:[employer] [place] [phone] LYONS MD Blood 10/20/2023 11:0 2 AM EDT 10/20/2023 2:29 PM EDT Genny Santigao [facility] LAB BLOOD ORDERABLES Final Res ult Performing Organization Address City/State/[facility] Co de Phone Number [facility] [address] [place] [phone] * HIV-1/2 Antigen and Antibodies, Fourth Generation, with Reflexes (10/20/2023 11:02 AM EDT) Pathologist [facility] HIV AB/AG Nonreactive Nonreactive [facility] Comment:HIV-1 p24 Ag and/or HIV-1/HIV-2 Ab not detected.A test result that is nonreactive does not exclude thepossibility of exposure to or infection with HIV-1 and/orHIV-2. Nonreactive results in this assay for individualswith prior exposure to HIV-1 and/or HIV-2 may be due toantigen and antibody levels that are below the limit ofdetection of this assay.The [employer] HIV Ag/Ab Combo assay result andsupplemental assay results should be interpreted inconjunction with the patient's clinical presentation,history and other laboratory results. If the results areinconsistent with clinical evidence, additional testing issuggested to confirm the result. Blood Venous blood specimen / Unknown 10/20/2023 11:02 AM EDT 10/20/2023 2:29 PM EDT us Genny [facility] LAB BLOOD ORDERABLES Final Res ult [facility] [address] [place] [phone] from Last 3 Months or Most Recently Relevant to Health Maintenance Insurance [employer] Care Teams Twister Doffer Relationship Specialty Start Date End Date Genny Santiago FNP [address] [place] [phone] PCP - General Family Medicine 04/04/22
--- OUTSIDE RECORDS SUMMARY | 2025-03-14 14:08 | XMS_ITS | Encounter Summary ---
Author Organization [employer] Address [address] [facility] 7t [place] [address] Care Team Providers Care Oncology Rep Name Role Phone AndersonGenny pizarro LORA Primary Care Provider [phone] Encounter Details Date Type Department Care Team (Late st Contact Info) Description 02/01/2023 Orders Only [facility] [address] [place] [address] Gayathri Browne LPN ERRONEOUS ENCOUNTER--DISREGARD Social History [...] 4:09 PM EDT Stuart Nava [place] Trouble falling or staying asleep, or [...] Description 04/04/2025 8:30 AM EST Procedure Visit [facility] [address] [place] [address] Genny Santiago FNP [address] [place] [address] documented as of this encounter Visit Diagnoses Diagnosis ERRONEOUS ENCOUNTER--DISREGARD documented in this encounter Additional Health Concerns Assessment Noted Time PHQ-9 Depression Total Score: 19 023 10:26 AM EDT documented as of this encounter Care Teams Oncology Rep Relationship Specialty Start Date End Date Genny Santiago FNP [address] [place] [phone] PCP - General Family Medicine 04/04/22 documented as of this encounter
== END 2025-03-14 13:56 | disposition home or self-care (01) ==
LOC: HO.RHES 13:01
PROVIDERS: PCP Registered Nurse; Visit Provider Student in an Organized Health Care Education/Training Program
DX: M08.80 Other juvenile arthritis, unspecified site (principal); Z51.81 Encounter for therapeutic drug level monitoring; Z79.631 Long term (current) use of antimetabolite agent
CPT/HCPCS: 99204

== ENCOUNTER 2025-04-04 14:22 | Outpatient (REF) | payer OTHER, SELFPAY ==
--- OUTSIDE RECORDS SUMMARY | 2025-04-02 15:30 | XMS_ITS | Encounter Summary ---
Author Organization [employer] Address [address] [facility] [address] [place] [address] Care Team Providers Care Clinical Marketing Manager Name Role Phone PamelaGenny LORA Primary Care Provider [phone] Encounter Details Date Type Department Care Team (Late st Contact Info) Description 04/02/2025 3:30 PM EST Office Visit [facility] [address] [place], [place] [phone] Mauricio Michael MD [address] [place] [address] Acute non-recurrent maxillary sinusitis (Primary Dx); Sore throat; Congestion of nasal sinus Social History Tobacco Use Types Packs/Day Years [...] Sign Reading Time Taken Comments Blood Pressure 115/75 04/02/2025 3:48 PM EST Pulse 81 04/02/2025 3:48 PM EST Temperature 36.6 C (97.8 F) 04/02/2025 3:48 PM EST Respiratory Rate 20 04/02/2025 3:48 PM EST Oxygen Saturation 98% 04/02/2025 3:48 PM EST Inhaled Oxygen Concentration - - Weight 103 kg (226 lb) 04/02/2025 3:48 PM EST Height 163.2 cm (5' 4.25 ) 04/02/2025 3:48 PM ES T Body Mass Index 38.49 04/02/2025 3:48 PM EST documented in this encounter Progress Notes * Mauricio Barrientos MD - 04/02/2025 3:30 PM EST Subjective Patient ID: Mami Fortune is a 24 y.o. female who presents for No chief complaint on file.. Sinusitis This is a new problem. The current episode started in the past 7 days. The pain is moderate. Associated symptoms include congestion, headaches and sinus pressure. Pertinent negatives include no shortness of breath. Review of Systems HENT: Positive for congestion and sinus pressure. Respiratory: Negative for shortness of breath. Neurological: Positive for headaches. Objective Physical Exam Constitutional: Appearance: Normal appearance. Cardiovascular: Rate and Rhythm: Normal rate. Heart sounds: No murmur heard. Neurological: General: No focal deficit present. Mental Status: She is alert and oriented to person, place, and time. Psychiatric: Mood and Affect: Mood normal. Behavior: Behavior normal. Assessment/Plan Problem List Items Addressed This Visit Acute non-recurrent maxillary sinusitis - Primary Will start on augmentin, told to remain well hydrated, call back if not imprpoving, continue zyrtec/flonase Other Visit Diagnoses Sore throat Relevant Orders POCT Rapid Strep A OSOM Congestion of nasal sinus Relevant Orders POCT Rapid Covid-19 BinaxNOW POCT Rapid Influenza A [facility] POCT Rapid Influenza B OSOM documented in this encounter Miscellaneous Notes * Assessment & Plan Note - Mauricio Barrientos MD - 04/02/2025 4:22 PM ESTAssociated Problem(s): Acute non-recurrent maxillary sinusitis Will start on augmentin, told to remain well hydrated, call back if not imprpoving, continue zyrtec/flonase documented in this encounter Plan of Treatment Not on file documented as of this encounter Procedures Procedure Name Priority Date/Time Associated Diagnosis Comments POCT RAPID STREP A Routine 04/02/2025 4: 31 PM EST Sore throat POCT INFLUENZA B Routine 04/02/2025 4:3 0 PM EST Congestion of nasal sinus POCT INFLUENZA A Routine 04/02/2025 4:30 PM EST Congestion of nasal sinus POCT RAPID COVID ANTIGEN Routine 04/02/2025 4:29 PM EST Congestion of nasal sinus documented in this encounter Results * POCT Rapid Strep A OSOM (04/02/2025 4:31 PM EST) [facility] Rapid Strep A Screen Negative Negative, None Detected QC Media Lot # [id number] Lot# Expiration Date , Swab 04/02/2025 4:31 PM EST Mauricio Barrientos MD POINT OF CARE TEST ENTER/EDIT ORDERABLES Final Result * POCT Rapid Influenza B OSOM (04/02/2025 4:30 PM EST) [facility] Rapid Influenza B Ag Negative Negative, Indeterminate QC Media Lot # [id number] Lot# Expiration Date Swab 04/02/2025 4:30 PM EST Result [facility] Mauricio Barrientos MD POINT OF CARE TEST ENTER/EDIT ORDERABLES Final Result * POCT Rapid Influenza A OSOM (04/02/2025 4:30 PM EST) [facility] Rapid Influenza A Ag Negative Negative, Indeterminate QC Media Lot # [id number] Lot# Expiration Date Swab Nasopharyngeal structure / Unknown 04/02/2025 4:30 PM EST Result [facility] Mauricio Barrientos MD POINT OF CARE TEST ENTER/EDIT ORDERABLES Final Result * POCT Rapid Covid-19 BinaxNOW (04/02/2025 4:29 PM EST) [facility] Rapid COVID Ag Negative QC Media Lot # [id number] Lot# Expiration Date Swab 04/02/2025 4:29 PM EST Result [facility] Mauricio Barrietnos MD POINT OF CARE TEST ENTER/EDIT ORDERABLES Final Result documented in this encounter Visit Diagnoses Diagnosis Acute non-recurrent maxillary sinusitis- Primary Sore throat Acute pharyngitis Congestion of nasal sinus Other diseases of nasal cavity and sinuses documented in this encounter Additional Health Concerns Assessment Noted Time PHQ-9 Depression Total Score: 16 025 10:43 AM EDT documented as of this encounter Care Teams Clinical Marketing Manager Relationship Specialty Start Date End Date Genny Santiago FNP [address] [place] [address] PCP - General Family Medicine 04/04/22 documented as of this encounter
--- OUTSIDE RECORDS SUMMARY | 2025-04-04 08:30 | XMS_ITS | Encounter Summary ---
Author Organization [employer] Address [address] [facility] 7[address] [place] [address] Care Team Providers Care Squad Leader Name Role Phone Genny Santiago Primary Care Provider [phone] Reason for Visit * Reason Comments Gynecologic Exam Encounter Details Date Type Department Care Team (Latest Contact Info) Description 04/04/2025 8:30 AM EST Procedure Visit [facility] PEDS [address] [place], [place] [id number] Genny Santiago FNP [address] [place] [address] Cervical cancer screening (Primary Dx) Social History Tobacco Use Types Packs/Day Years [...] Sign Reading Time Taken Comments Blood Pressure 131/92 04/04/2025 8:50 AM EST Pulse 100 04/04/2025 8:50 AM EST Temperature 37.1 C (98.7 F) 04/04/2025 8:50 AM EST Respiratory Rate 20 04/04/2025 8:50 AM EST Oxygen Saturation - - Inhaled Oxygen Concentration - - Weight 103 kg (226 lb) 04/04/2025 8:50 AM EST Height 163.2 cm (5' 4.25 ) 04/04/2025 8:50 AM ES T Body Mass Index 38.49 04/04/2025 8:50 AM EST documented in this encounter Plan of Treatment Scheduled Orders Name Type Priority Associated Diagnoses Orde r Schedule Pap Smear Pathology and Cytology Routine Cervical cancer screening Ordered: 04/04/2025 documented as of this encounter Visit Diagnoses Diagnosis Cervical cancer screening- Primary Screening for malignant neoplasm of the cervix documented in this encounter Additional Health Concerns Assessment Noted Time PHQ-9 Depression Total Score: 16 025 10:43 AM EDT documented as of this encounter Care Teams Squad Leader Relationship Specialty Start Date End Date Genny Santiago FNP [address] [place] [address] PCP - General Family Medicine 04/04/22 documented as of this encounter
--- OUTSIDE RECORDS SUMMARY | 2025-04-04 14:43 | XMS_ITS | Encounter Summary ---
Author Organization [employer] Address [address] [facility] [address] [place] [address] Care Team Providers Care Securities Lending Trader Name Role Phone Genny Santiago Primary Care Provider [phone] Reason for Visit * Reason Onset Date Comments Nurse Triage 04/02/2025 Encounter Details Date Type Department Care Team ([facility] st Contact Info) Description 04/02/[address] [facility] MED & PEDS [address] [place], [place] [id number] Genny Santiago FNP [address] [place] [address] Nurse Triage Social History Tobacco Use Types Packs/Day Years [...] encounter Miscellaneous Notes * Telephone Encounter - Edilma Gee RN - 04/02/2025 9:33 AM EST T/C returned to pt to triage. Pt reporting COOKIE Sx x4 days. Has nasal congestion and non productive cough. For the past 2 days pt has been experiencing sinus pressure and a headache that is exacerbated with light. Pt reports using flonase, mucinex, and OTC medications for cold/flu without relief of Sx. Pt reports it is just worsening. Pt sounds very congested on the phone, states can't breathe outof her nose. Pt denies SOB, chills, N/V/D or fever. However, pt reports that she feels warm but thermometer shows no fever. Pt reports her fiance has similar Sx, went to yesterday and was Dxd withsinus infection. Pt offered WIC or appt in [facility] as she is [facility] pt. Pt would like [facility]. Booked for today at 3:30 with [facility]. Pt agrees with plan. Protocol Used: Common Cold (Adult) Protocol-Based Disposition: See in Office or Video Visit Today or Tomorrow Video visit offer not recorded Positive Triage Question: * Using nasal washes and pain medicine > 24 hours and sinus pain (lower forehead, cheekbone, or eye) persists * All higher-acuity triage questions were negative. * Telephone Encounter - Srinivasan Hernandez - 04/02/2025 9:14 AM EST Symptoms: Headache, Chest Congestion, Cough, Sinus Symptoms Outcome: Schedule an urgent appointment (within 1 hour) or talk to a nurse or provider soon Reason: Severe headache The caller accepted this outcome. Contact pt at [phone] documented in this encounter Plan of Treatment Not on file documented as of this encounter Visit Diagnoses Not on filedocumented in this encounter Additional Health Concerns Assessment Noted Time PHQ-9 Depression Total Score: 16 01/03/ 025 10:43 AM EDT documented as of this encounter Care Teams Securities Lending Trader Relationship Specialty Start Date End Date Genny Santiago FNP [address] [place] [address] PCP - General Family Medicine 04/04/22 documented as of this encounter
--- OUTSIDE RECORDS SUMMARY | 2025-04-04 14:43 | XMS_ITS | Encounter Summary ---
Author Organization [employer] Address [address] [facility] [address] [place] [address] Care Team Providers Care Marketing And Public Relations Manager Name Role Phone AndersonGenny pizarro LORA Primary Care Provider [phone] Encounter Details Date Type Department Care Team (Latest Contact Info) Description 04/02/2025 Travel Social History Tobacco Use Types Packs/Day [...] as of this encounter Plan of Treatment Not on file documented as of this encounter Visit Diagnoses Not on filedocumented in this encounter Additional Health Concerns Assessment Noted Time PHQ-9 Depression Total Score: 16 025 10:43 AM EDT documented as of this encounter Care Teams Marketing And Public Relations Manager Relationship Specialty Start Date End Date Genny Santiago FNP [address] [place] [id number] PCP - General Family Medicine 04/04/22 documented as of this encounter
--- OUTSIDE RECORDS SUMMARY | 2025-04-04 14:43 | XMS_ITS | Encounter Summary ---
Author Organization [employer] Address [address] [facility] [address] [place] [address] Care Team Providers Care Network Development Coordinator Name Role Phone AndersonGenny pizarro LORA Primary Care Provider [phone] Encounter Details Date Type Department Care Team (Latest Contact Info) Description 04/04/2025 Travel Social History Tobacco Use Types Packs/Day [...] documented as of this encounter Care Teams Network Development Coordinator Relationship Specialty Start Date End Date Genny Santiago FNP [address] [place] [id number] PCP - General Family Medicine 04/04/22 documented as of this encounter
--- OUTSIDE RECORDS SUMMARY | 2025-04-04 14:43 | XMS_ITS | Clinical Summary ---
Author Organization [facility] Address [address] [place] [address] Care Team Providers Care Qa Software Tester Name Role Phone Unavailable Primary Care Provider [...] Depression Screening 05/15/2024 COVID-19 Vaccine (1 - 2024-2 6 season) 2025 Influenza Vaccine (#1) 2025 RSV [...]
--- OUTSIDE RECORDS SUMMARY | 2025-04-04 14:44 | XMS_ITS | Encounter Summary ---
Author Organization [employer] Address [address] [facility] [address] [place] [address] Care Team Providers Care Brand Sales Consultant Name Role Phone AndersonGenny pizarro LORA Primary Care Provider [phone] Encounter Details Date Type Department Care Team (Late st Contact Info) Description 02/01/2023 Orders Only [facility] CHC MED & PEDS [address] [place] [address] Gayathri Browne LPN ERRONEOUS ENCOUNTER--DISREGARD Social History [...] 4:09 PM EDT Stuart Nava MA * How difficult have these problems made it for you to do your work, take care of things at home, or get along with other people? Answer Date of Assessment Author Very difficult 02/03/2023 4:09 PM EDT Stuart Naqvi MA * Over the past 2 weeks, [...] television Not at all 02/03/2023 4:09 PM [employer] Stuart Nava MA Moving or speaking so slowly that other people could have noticed? Or the opposite - being so fidgety or restless that you have been moving around a lot more than usual. Several days 02/03/2023 4:09 PM Stuart Alfaro MA Thoughts that you would be better off or hurting yourself in some way Not at all 02/03/2023 4:09 PM GUANAC[employer] Stuart Nava MA Patient Health Questionnaire-9 Score 16 02/03/2023 4:09 PM EDStuart Chavarria [place] documented as of this encounter Plan of Treatment Not on file documented as of this encounter Visit Diagnoses Diagnosis ERRONEOUS ENCOUNTER--DISREGARD documented in this encounter Additional Health Concerns Assessment Noted Time PHQ-9 Depression Total Score: 19 023 10:26 AM EDT documented as of this encounter Care Teams Brand Sales Consultant Relationship Specialty Start Date End Date Genny Santiago FNP [address] [place] [address] PCP - General Family Medicine 04/04/22 documented as of this encounter
--- OUTSIDE RECORDS SUMMARY | 2025-04-04 14:44 | XMS_ITS | Clinical Summary ---
Author Organization [employer] Address [address] [facility] [address] [place] [address] Care Team Providers Care Cloth Reeler Name Role Phone Genny Santiago LORA Primary Care Provider [phone] Allergies Active Allergy Reactions Criticality Noted Date [...] need refills 16 g 5 026 Active Multiple Vitamins-Minera ls (WOMENS MULTI GUMMIES PO)Indications: Encounter for routine history and physical examination of adult Take 1 tablet by mouth Once per day. Active FLUoxetine (PROzac) 10 MG capsuleIndicati ons:Anxiety with depression Take 1 capsule (10 mg) by mouth Once per day. 90 capsule 1 5 026 Active famotidine (Pepcid) 20 MG tabletIndicatio ns:Mild acid reflux Take 1 tablet (20 mg) by mouth before breakfast and before evening meal. 60 tablet 1 5 026 Active buPROPion XL (Wellbutrin XL) 300 MG 24 hr tablet TAKE 1 TABLET BY MOUTH EVERY MORNING. DO NOT CRUSH, CHEW OR SPLIT. 90 tablet 1 5 Active levoFLOXacin (Levaquin) 500 MG tablet Take 1 tablet (500 mg) by mouth Once per day for 7 days. 7 tablet 5 025 Active amoxicillin-cla vulanate (Augmentin) 875-125 MG tablet Take 1 tablet by mouth 2 times daily for 7 days. 14 tablet 5 025 Discontin ued(Thera py completed ) Active Problems Problem Noted Date Diagnosed Date Acute non-recurrent maxillary sinusitis 04/02/20 25 Assessment & Plan (04/02/2025 4:22 PM EST): Will start on augmentin, told to remain well hydrated, call back if not imprpoving, continue zyrtec/flonase Mild acid reflux 01/05/2025 Assessment & Plan (01/05/2025 2:21 PM EDT): - Increased frequency of acid reflux symptoms. - Start famotidine up to twice daily before meals. Avoid dietary triggers. Follow-up in 2-3 months to assess response. Juvenile idiopathic arthritis ([facility]) 09/07/19 23 Assessment & Plan (01/05/2025 2:14 PM EDT): - Juvenile arthritis symptoms have worsened due to discontinuation of Humira. 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 - Placed urgent referral to rheumatology for [...] potential interaction with fluoxetine. -BH: OP therapy: [facility] ([facility]) Therapist: Harman Assessment & Plan (11/17/2023 9:52 AM EDT): -Continue fluoxetine 10mg daily -Start bupropion 150mg daily x 1 week. May increase to 300mg if tolerating well w/o SE -BH: OP therapy: [facility] ([facility]) Therapist: Harman Assessment & Plan (10/22/2023 4:33 [...] include resilience. PLAN: 1. Follow up with [facility]: Not recommended for follow-up 2. Patient [...] (01/05/2025): Last PE: 01/03/25 Dental: referral to [facility] dental 06/19/23 Pap: due for annual pap while taking Humira. Assessment & Plan (01/05/2025 2:22 PM EDT): Encouraged to schedule pap. Routine lab work ordered. Allergies 09/06/2022 Assessment & Plan (01/05/2025 2:19 PM EDT): -Allergy testing through ENT and reports tested positive to the following allergens: Grass, trees, cat and dog dander, cockroaches, dust, mold -Referred to marketing project manager in August 2022 for testing of food allergies, reports initial consult scheduled for Feb 2023 -Epi pen PRN -Referred to re-establish with allergies: 01/05/25 Assessment & Plan (10/22/2023 4:33 PM EDT): -Allergy testing through ENT and reports tested positive to the following allergens: Grass, trees, cat and dog dander, cockroaches, dust, mold -Referred to marketing project manager in August 2022 for testing of food allergies, reports initial consult scheduled for Feb 2023 -Epi pen PRN -Continues with allergy shots Assessment & Plan (06/19/2023 12:29 PM EST): -Allergy testing through ENT and reports tested positive to the following allergens: Grass, trees, cat and dog dander, cockroaches, dust, mold -Referred to marketing project manager in August 2022 for testing of food allergies, reports initial consult scheduled for Feb 2023 -Epi pen PRN -Plan to restart allergy shots (was informed duration would be weekly injections x 3-5 years) Assessment & Plan (11/05/2022 8:19 PM EDT): -Allergy testing through ENT and reports tested positive to the following allergens: Grass, trees, cat and dog dander, cockroaches, dust, mold -Referred to marketing project manager in August 2022 for testing of foot allergies, reports initial consult scheduled for Feb 2023 -Epi pen PRN Assessment & Plan (09/06/2022 1:47 PM EDT): -Allergy testing through ENT and reports tested positive to the following allergens: Grass, trees, cat and dog dander, cockroaches, dust, mold -Referral to marketing project manager on 09/06/22 for further eval of food [...] Encounters Date Type Department Care Team Description 04/04/2025 8:30 AM EST Procedure Visit [facility] [address] [place] [address] Genny Santiago FNP Cervical cancer screening (Primary Dx) 04/04/2025 Travel 04/02/2025 3:30 PM EST Office Visit [facility] [address] [place] [address] Mauricio Michael MD Acute non-recurrent maxillary sinusitis (Primary Dx); Sore throat; Congestion of nasal sinus 04/02/2025 Travel 04/02/[address] [facility] [address] [place] [address] Genny Santiago FNP Nurse Triage 03/14/2025 Orders Only GENERIC EXTERNAL DATA DEPARTMENT Provider, Generic External Data 02/03/2025 Results Follow-Up [facility] [address] [place] [address] Genny Santiago FNP T-SPOT .TB, Comprehensive Metabolic Panel, TSH W/Reflex to FT4, Additional followed-up results: 3 01/28/[address] [facility] [address] [place] [address] Shiloh Fish MD 01/03/2025 9:30 AM EDT Office Visit [facility] [address] [place] [address] Genny Santiago FNP Encounter for routine history and physical examination of adult (Primary Dx); Dietary counseling; Exercise counseling; Allergy, subsequent encounter; Routine health maintenance; Anxiety with depression; Juvenile idiopathic arthritis (CMS/HCC); Recurrent sinusitis; Mild acid reflux 01/03/2025 Travel 01/02/[address] [facility] [address] [place] [address] Genny Santiago FNP Chart Prep from Last 3 Months Immunizations Immunization Administration [...] cancer Paternal Grandmother Rhona Asthma Sister 1 Umereymag Depression Sister 1 Rosie Intellectual Disability Sister 2 Suseth Learning disabilities Sister 2 Alisa Relation Name Status Comments Father Frederic Alive Father's Sister Tracy Alive Maternal Grandfather Quan Alive Maternal Grandmother Judy Alive Mother Rosi Alive Mother's Sister Volodymyr Alive Paternal Grandmother Rhona Alive Sister 1 Rosie Alive Sister 2 Alisa Alive Social History Tobacco Use Types Packs/Day [...] 20 04/04/2025 8:50 AM EST Oxygen Saturation 98% 04/02/2025 3:48 PM EST Inhaled Oxygen Concentration - - Weight 103 kg (226 lb) 04/04/2025 8:50 AM EST Height 163.2 cm (5' 4.25 ) 04/04/2025 8:50 AM ES T Body Mass Index 38.49 04/04/2025 8:50 AM EST Plan of Treatment Health Maintenance Due Date Last Done Comments Chlamydia and Gonorrhea Screening 2001 Family Planning (PISQ) 2016 Pap Smear 2022 COVID-19 Vaccine ( season) 2025 03/05/2024, 10/20/2023, 09/06/2022, Additional history exists Influenza Vaccine (#1) 2025 , 02/03/2023, 01/27/2022, Additional history exists Depression Monitoring 07/06/2025 01/03/2025, 025 Tobacco Screening 11/20/2025 11/20/2024 SDOH Screening 12/26/2025 12/26/2024 Alcohol/Substance Use Screening 01/03/2026 01/03/2025 Disability Screening 04/04/2026 04/04/2025 DTaP/Tdap/Td Vaccines (9 - Td or Tdap) [...] Screening Completed 10/20/2023 Hepatitis C Screening Completed 03/14/2025 , 10/20/2023, 11/11/2019 RSV under 20 months Aged Out No longe r eligible based on patient's age to complete this topic Rotavirus Vaccines Aged Out No longer eligible based on patient's age to complete this topic Procedures Procedure Name Priority Date/Time Associated Diagnosis Comments POCT RAPID STREP A Routine 04/02/2025 4: 31 PM EST Sore throat POCT INFLUENZA B Routine 04/02/2025 4:30 PM EST Congestion of nasal sinus POCT INFLUENZA A Routine 04/02/2025 4:30 PM EST Congestion of nasal sinus POCT RAPID COVID ANTIGEN Routine 04/02/2025 4:29 PM EST Congestion of nasal sinus CYCLIC CITRULLINATED PEPTIDE (CCP) AB (IGG) Routine 03/14/2025 2:02 PM EDT HEPATITIS B, C PROFILE Routine 2:02 PM EDT SED RATE BY MODIFIED WESTERGREN Routine 03/14/2025 2:02 PM EDT C-REACTIVE PROTEIN Routine 03/14/2025 2: 02 PM EDT COMPREHENSIVE METABOLIC PANEL Routine 03/14/2025 2:02 PM EDT RHEUMATOID FACTOR Routine 03/14/2025 2:0 2 PM EDT CBC WITH AUTO DIFFERENTIAL Routine 03/14/2025 2:02 PM EDT VITAMIN D,25-OH,TOTAL,IA Routine 01/08/2025 9:28 AM EDT [...] Recently Relevant to Health Maintenance Results * POCT Rapid Strep A OSOM (04/02/2025 4:31 PM EST) Pathologist [facility] Rapid Strep A Screen Negative Negative, None Detected QC Media Lot # [id number] Lot# Expiration Date [id number] Swab 04/02/2025 4:31 PM EST Mauricio Barrientos MD POINT OF CARE TEST ENTER/EDIT ORDERABLES Final Result * POCT Rapid Influenza B OSOM (04/02/2025 4:30 PM EST) Pathologist [facility] Rapid Influenza B Ag Negative Negative, Indeterminate QC Media Lot # [id number] Lot# Expiration Date Swab 04/02/2025 4:30 PM EST Mauricio Barrientos MD POINT OF CARE TEST ENTER/EDIT ORDERABLES Final Result * POCT Rapid Influenza A OSOM (04/02/2025 4:30 PM EST) [facility] Rapid Influenza A Ag Negative Negative, Indeterminate QC Media Lot # [id number] Lot# Expiration Date Swab Nasopharyngeal structure / Unknown 04/02/2025 4:30 PM EST Mauricio Barrientos MD POINT OF CARE TEST ENTER/EDIT ORDERABLES Final Result * POCT Rapid Covid-19 BinaxNOW (04/02/2025 4:29 PM EST) [facility] Rapid COVID Ag Negative QC Media Lot # [id number] Lot# Expiration Date [id number] Swab 04/02/2025 4:29 PM EST Mauricio Barrientos MD POINT OF CARE TEST ENTER/EDIT ORDERABLES Final Result * Hepatitis B, C Profile (03/14/2025 2:02 PM EDT) [facility] ~Hepatitis B Surface Antibody REACTIVE Nonreactive [facility] Comment:REACTIVE: > 11.99 mI U/mL Hepatitis B Core Antibody Nonreactive Nonreactive [facility] Hepatitis C Antibody Nonreactive Nonreactive [facility] Comment:Antibodies to HCV no t detected; does not exclude early acuteHCV infection. Hepatitis B Surface Ag Negative Negative [facility] 03/14/2025 2:02 PM EDT 03/14/2025 5:56 PM EDT Generic External Data Provider LAB BLOOD ORDERAB LES Final Result [facility] [address] [place] [address] [phone] * (ABNORMAL) CBC auto differential (03/14/2025 2:02 PM EDT) White Blood Count 10.0 4.8 - 10.8 X10*3/uL [facility] Red Blood Count 4.28 4.20 - 5.50 X10*6/uL [facility] Hemoglobin 11.6(L) 12.0 - 16.0 g/dl [facility] Hematocrit 38.3 37.0 - 47.0 % [facility] Mean Corpuscular Volume 89.5 80.0 - 98.0 fL [facility] Mean Corpuscular Hemoglobin 27.1 27.0 - 33.0 pg [facility] Mean Corpuscular HGB Conc 30.3(L) 31.0 - 35.0 g/dl [facility] Red Cell Distribution Width 14.4 11.0 - 16.0 % [facility] Platelet Count 318 160 - 400 X10*3/uL [facility] Mean Platelet Volume 9.8 9.4 - 12.3 fL [facility] Neutrophils Percent Auto 68.2 45 - 73 % [facility] Imm Gran Pct Auto 0.2 0.0 - 0.4 % [facility] Lymphocytes Percent Auto 24.6 20 - 40 % [facility] Monocytes Percent Auto 5.9 2 - 11 % [facility] Eosinophils Percent Auto 0.6 0 - 4 % [facility] Basophils Percent Auto 0.5 0 - 2 % [facility] NRBC Pct Auto 0.0 0.0 - 0.2 /100WBC [facility] Neutrophils Absolute Auto 6.8 2.0 - 8.3 x10*3/uL [facility] Imm Gran Abs Auto 0.02 0.00 - 0.03 X10*3/uL [facility] Lymphocytes Absolute Auto 2.5 1.2 - 4.9 X10*3/uL [facility] Monocytes Absolute Auto 0.6 0.1 - 1.2 X10*3/uL [facility] Eosinophils Absolute Auto 0.1 0.0 - 0.4 X10*3/uL [facility] Basophils Absolute Auto 0.1 0.0 - 0.2 X10*3/uL [facility] NRBC Abs Auto 0.000 0.0 - 0.012 X10*3/uL [facility] 03/14/2025 2:02 PM EDT 03/14/2025 5:56 PM EDT Generic External Data Provider LAB BLOOD ORDERAB LES Final Result Performing Organization Address [facility] [address]/[facility] Co de Phone Number [facility] [address] [place] [phone] * Cyclic Citrullinated Peptide (CCP) Antibody (IgG) (03/14/2025 2:02 PM EDT) Pathologist [facility] Cyclic Citrullinated Peptide <16 UNITS [facility] Comment:Reference RangeNegat dyana: <20Weak Positive: 20-39Moderate Positive: 40-59Strong Positive: >59THIS TEST WAS PERFORMED AT:[employer] [address] [address]FPJLSISAÍAS LYONS MD 03/14/2025 2:02 PM EDT 03/14/2025 5:56 PM EDT Generic External Data Provider LAB BLOOD ORDERAB LES Final Result Performing Organization Address [facility] [address]/[facility] Co de Phone Number [facility] [address] [place] [phone] * (ABNORMAL) Sed Rate by Tao Cowan (03/14/2025 2:02 PM EDT) Pathologist [facility] Erythrocyte Sedimentation Rate 33(H) 0 - 20 MM/HR [facility] Comment:Patients with polycy themia and many hemoglobin abnormalitiesmay have depressed sed rates whereas patients with anemiamay have elevated sed rates. 03/14/2025 2:0 2 PM EDT 03/14/2025 5:56 PM EDT Generic External Data Provider LAB BLOOD ORDERAB LES Final Result Performing Organization Address [facility] [address]/[facility] Co de Phone Number [facility] [address] [place] [phone] * Rheumatoid Factor (03/14/2025 2:02 PM EDT) [facility] Rheumatoid Factor <13.0 <15.0 IU/mL [facility] 03/14/2025 2:02 PM EDT 03/14/2025 5:56 PM EDT Generic External Data Provider LAB BLOOD ORDERAB LES Final Result Performing Organization Address [facility] de Phone Number [facility] [address] [place] [phone] * (ABNORMAL) C-reactive Protein (03/14/2025 2:02 PM EDT) [facility] C Reactive Protein 1.96(H) < or = 0.50 mg/dL [facility] 03/14/2025 2:02 PM EDT 03/14/2025 5:56 PM EDT Generic External Data Provider LAB BLOOD ORDERAB LES Final Result Performing Organization Address [facility] de Phone Number [facility] [address] [place] [phone] * (ABNORMAL) Comprehensive Metabolic Panel (03/14/2025 2:02 PM EDT) Only the most recent of2 resultswithin the time period is included. [facility] Sodium 139 135 - 145 mmol/L [facility] Potassium 4.3 3.3 - 5.1 mmol/L [facility] Chloride 105 96 - 108 mmol/L [facility] Carbon Dioxide 28 22 - 29 mmol/L [facility] Anion Gap 10(L) 12 - 20 [facility] Urea Nitrogen (BUN) 9 9 - 16 mg/dL [facility] Creatinine, Serum 0.65 0.5 - 1.4 mg/dL [facility] Estimated Glomerular Filt Rate >60 [facility] Comment:Chronic Kidney Disea se: Estimated GFR < 60 mL/min/1.81h0Pcpfym Kidney Disease: Estimated GFR < 15 mL/min/1.73m2 Glucose 87 60 - 115 mg/dL [facility] Calcium 9.0 8.4 - 10.2 mg/dL [facility] Bilirubin, Total 0.2 0.0 - 1.0 mg/dL [facility] Aspartate Amino Transferase 22 5 - 31 U/L [facility] Alanine Aminotransferase 16 0 - 31 U/L [facility] Total Protein 8.0 6.5 - 8.0 g/dL [facility] Albumin Level 4.3 3.5 - 5.0 g/dL [facility] Alkaline Phosphatase 112 39 - 117 U/L [facility] 03/14/2025 2:02 PM EDT 03/14/2025 5:56 PM EDT us Generic External Data Provider LAB BLOOD ORDERAB LES Final Result [facility] [address] [place] [phone] [phone] * (ABNORMAL) Vitamin D, 25-Hydroxy, Total, Immunoassay (01/08/2025 9:28 AM EDT) Vitamin D 25-OH Total 25.4(L) >30 ng/mL [facility] Comment: Health Based Reference Values*< 20 ng/mL Fxdagryjv56-50 ng/mL Insufficient> 30 ng/mL Sufficient*Carol VIDAL. N [...] 01/08/2025 2:37 PM EDT us Genny Santiago [facility] LAB BLOOD ORDERABLES Final Res ult [facility] [address] [place] [phone] * T-SPOT??.TB (01/08/2025 9:28 AM EDT) [facility] T Spot TB Negative Negative [facility] Comment:A negative test resu lt [...] as aquantitative test. TS PANEL A 0 [facility] TS PANEL B 0 [facility] Negative Control Passed [facility] Positive Control Passed [facility] Comment:For additional infor salomón, please refer tohttp://education.Fastly/faq/ZTK776(This link is being provided for informational/educational purposes only.)THIS TEST WAS PERFORMED AT:[employer] [place] [address]AGLQCMAGEO HI MD,PHD 01/08/2025 9:28 AM EDT 01/08/2025 2:37 PM EDT Genny Santiago STEAM PRESSURE CHAMBER OPERATOR LAB BLOOD ORDERABLES Final Res ult Performing Organization Address [facility] [address]/[facility] Co de Phone Number [facility] [address] [place] [phone] * TSH W/Reflex to FT4 (01/08/2025 9:28 AM EDT) TSH reflex Free T4 0.70 0.32 - 4.0 uIU/mL [facility] Blood Venous blood specimen / Unknown 01/08/2025 9:28 AM EDT 01/08/2025 2:37 PM EDT Genny Santiago STEAM PRESSURE CHAMBER OPERATOR LAB BLOOD ORDERABLES Final Res ult Performing Organization Address [facility] [address]/[facility] de Phone Number [facility] [address] [place] [phone] * Hemoglobin A1c (01/08/2025 9:28 AM EDT) Hemoglobin A1c 5.3 <6.0 % [facility] Comment:Hemoglobin A1C Refer ence Range Adults: 4.8 - 6.0 % Non diabetic: < 6.0 % Goal: < 7.0 %Additional Action Suggested: > 8.0 %Note: Hemoglobin A1c results are invalid for patients with abnormal amounts of HbF. Blood transfusions may impact the HbA1c concentration in the patient sample. Estimated Average Glucose 105 mg/dL [facility] Comment:eAG = Estimated ave rage glucose which is %A1C expressed asaverage glucose, using the formula of the [id number] Glucose study (ADAG), Diabetes Care, Vol.31,#8,Dec. 2007 Blood Venous blood specimen / Unknown 01/08/2025 9:28 AM EDT 01/08/2025 2:37 PM EDT Genny Santiago [facility] LAB BLOOD ORDERABLES Final Res ult Performing Organization Address [facility] [address] [facility] Co de Phone Number [facility] [address], [place] [phone] * Lipid Panel, Standard (01/08/2025 9:28 AM EDT) Triglycerides 51 <150 mg/dL [facility] Comment:Desirable Triglyceri de: less than 150 mg/dLBorderline High Triglyceride 150-199 mg/dLHigh Triglyceride: 200-499 mg/dLVery High Triglyceride: greater than or equal to 5OO mg/dL Cholesterol 147 <200 mg/dL [facility] Comment:Desirable Cholestero l: less than 200 mg/dLBorderline High Cholesterol: 200-239 mg/dLHigh Cholesterol: greater than 239 mg/dL LDL Cholesterol Calculated 89 <100 mg/dL [facility] Comment:Desirable LDL: less than 100 mg/dLNear Optimal/Above Optimal LDL: 110- 129 mg/dLBorderline High LDL: 130-159 mg/dLHigh LDL: 160-189 mg/dLVery High LDL: greater than or equal to 190 mg/dL HDL Cholesterol 48 >40 mg/dL [facility] Comment:Desirable HDL: great er than 40 mg/dL Note: This HDL assay may give artificially low results in patients with liver disease. Blood Venous blood specimen / Unknown 01/08/2025 9:28 AM EDT 01/08/2025 2:37 PM EDT us Genny Santiago STEAM PRESSURE CHAMBER OPERATOR LAB BLOOD ORDERABLES Final Res ult [facility] [address] [place] [phone] * HIV-1/2 Antigen and Antibodies, Fourth Generation, with Reflexes (10/20/2023 11:02 AM EDT) HIV AB/AG Nonreactive Nonreactive [facility] Comment:HIV-1 p24 Ag and/or HIV-1/HIV-2 Ab not detected.A test result that is nonreactive does not exclude thepossibility of exposure to or infection with HIV-1 and/orHIV-2. Nonreactive results in this assay for individualswith prior exposure to HIV-1 and/or HIV-2 may be due toantigen and antibody levels that are below the limit ofdetection of this assay.The [employer] HIV Ag/Ab Combo assay result andsupplemental assay results should be interpreted inconjunction with the patient's clinical presentation,history and other laboratory results. If the results areinconsistent with clinical evidence, additional testing issuggested to confirm the result. Blood Venous blood specimen / Unknown 10/20/2023 11:02 AM EDT 10/20/2023 2:29 PM EDT Genny Santiago [facility] LAB BLOOD ORDERABLES Final Res ult [facility] [address] [place] [phone] from Last 3 Months or Most Recently Relevant to Health Maintenance Insurance [employer] Care Teams Cloth Reeler Relationship Specialty Start Date End Date Genny Santiago FNP [address] [place] [phone] PCP - General Family Medicine 04/04/22
--- OUTSIDE RECORDS SUMMARY | 2025-04-04 14:44 | XMS_ITS | Encounter Summary ---
Author Organization [employer] Address [address] [facility] [address] [place] [address] Care Team Providers Care Supervisor Sterile Processing Name Role Phone Genny Santiago Primary Care Provider [phone] Reason for Visit * Reason Onset Date Comments Appointment Request 07/17/2023 Encounter Details Date Type Department Care Team (Late st Contact Info) Description 07/17/2023 Telephone [facility] [address] [place] [address] Genny Santiago FNP [address] [place] [address] Appointment Request Social History Tobacco Use Types [...] documented as of this encounter Care Teams Supervisor Sterile Processing Relationship Specialty Start Date End Date Genny Santiago FNP [address] [place] [address] PCP - General Family Medicine 04/04/22 documented as of this encounter
--- OUTSIDE RECORDS SUMMARY | 2025-04-04 14:44 | XMS_ITS | Encounter Summary ---
Author Organization [employer] Address [address] [facility] [address] [place] [address] Care Team Providers Care Assistant [employer] Name Role Phone Genny Santiago Primary Care Provider [phone] Encounter Details Date Type Department Care Team (Latest Contact Info) Description 02/03/2025 Results Follow-Up [facility] [address] [place], [place] [id number] Genny Santiago FNP [address] [place], [place] [id number] [facility] .TB, Comprehensive Metabolic Panel, TSH W/Reflex [...] documented as of this encounter Care Teams Assistant [employer] Relationship Specialty Start Date End Date Genny Santiago FNP [address] [place] [id number] PCP - General Family Medicine 04/04/22 documented as of this encounter
== END 2025-04-04 14:23 | disposition home or self-care (01) ==
LOC: HO.LNP 14:22
PROVIDERS: Visit Provider Registered Nurse
DX: Z12.4 Encounter for screening for malignant neoplasm of cervix (principal)
CPT/HCPCS: 88175